=== PATIENT | male | born 1950 | race Caucasian/White ===

== ENCOUNTER 2020-05-06 11:44 | Outpatient (CLI) | payer MEDICARE, SELFPAY ==
--- NOTE | ~2020-05-06 | XR_ITS ---
EXAMINATION: XR lumbar spine 6V w bending DATE: 05/06/2020 12:05 INDICATION: Low back pain TECHNIQUE: Anteroposterior, lateral in neutral, flexion and extension, and bilateral oblique views of the lumbar spine, and cone-down lateral view of the lumbosacral junction were obtained. COMPARISON: CT, 07/12/2017 FINDINGS: Vertebral body alignment is normal. There is no laxity with flexion or extension. No fractu re is identified. There is mild loss of intervertebral disc space height throughout the lumbar spine. The vertebral body heights are normal. There is moderate multilevel facet osteoarthritis. Cholecyste ctomy clips are present in the right upper quadrant. Calcified atherosclerosis is noted. IMPRESSION: 1. Mild to moderate lumbar spondylosis without acute findings. Reviewed, dictated and finalized at location A. ATIONS SCHEDULER
== END 2020-05-06 11:45 | disposition home or self-care (01) ==
PROVIDERS: PCP Internal Medicine; Visit Provider Physician Assistant
DX: M47.896 Other spondylosis, lumbar region (principal)
CPT/HCPCS: 72114

== ENCOUNTER 2022-03-02 11:30 | Outpatient (CLI) | payer MEDICARE, SELFPAY ==
[2022-03-02 14:39] LABS: Influenza A QL RT-PCR Negative (Negative); Influenza B QL RT-PCR Negative (Negative); RSV RNA, RT-PCR Negative (Negative); SARS-CoV-2 RNA PCR Negative
== END 2022-03-02 11:31 | disposition home or self-care (01) ==
LOC: ANHLAB 11:31
PROVIDERS: PCP Internal Medicine; Visit Provider Internal Medicine
DX: R50.9 Fever, unspecified (principal); Z20.822 Contact with and (suspected) exposure to COVID-19
CPT/HCPCS: 87637

== ENCOUNTER 2022-04-05 11:44 | Outpatient (CLI) | payer MEDICARE, SELFPAY ==
[2022-04-05 12:57] LABS: Influenza A QL RT-PCR Negative (Negative); Influenza B QL RT-PCR Negative (Negative); SARS-CoV-2 RNA PCR Negative
== END 2022-04-05 11:45 | disposition home or self-care (01) ==
PROVIDERS: PCP Internal Medicine; Visit Provider Physician Assistant
DX: R68.89 Other general symptoms and signs (principal); Z20.822 Contact with and (suspected) exposure to COVID-19
CPT/HCPCS: 87502; U0003; U0005

== ENCOUNTER 2022-04-06 10:59 | Inpatient (IN) | payer MEDICARE, SELFPAY ==
[2022-04-06] VITALS (35 sets, daily range): BP systolic 107–142; BP diastolic 54–111; PULSE 85–110; RESP 16–22; TEMP 36.9–37.4; O2SAT 92–99; BMI 27.5
--- NOTE | ~2022-04-06 | US_ITS ---
EXAMINATION: US venous doppler [facility] DATE: 04/10/2022 09:50 INDICATION: Lower limb swelling TECHNIQUE: Lipscomb scale images without and with compression and Doppler images of the bilateral lower e xtremity veins were obtained. COMPARISON: None FINDINGS: The right common femoral vein, profunda femoral vein, femoral vein, popliteal vein, peroneal trunk, p osterior tibial veins, and greater saphenous vein are patent. The left common femoral vein, profunda femoral vein, femoral vein, popliteal vein, peroneal trunk, po sterior tibial veins, and greater saphenous vein are patent. There is thrombosis of the lesser saphen ous vein. IMPRESSION: 1. Thrombosis of the left lesser saphenous vein. 2. No evidence of deep venous thrombosis. Reviewed, dictated and finalized at location L. KEEPER
--- NOTE | ~2022-04-06 | CT_ITS ---
Non-contrast Head CT History: Left facial numbness COMPARISON: 04/06/2022 Technique: Axial non-contrast imaging of the brain was performed. Dose reduction technique was used on this scan by utilizing automated exposure control and iterative reconstruction technique. The dose -length product (DLP) was 605.33 mGy-cm. Findings: There is no evidence of intracranial hemorrhage, mass lesion, or acute infarct. Brain par enchyma appears normal. The ventricles and subarachnoid spaces are normal in size. The calvarium ap pears normal. The visualized paranasal sinuses and mastoid air cells are clear. Impression: No significant abnormality seen. Reviewed, dictated and finalized at location . S INTERN Impression: No significant abnormality seen.
--- NOTE | ~2022-04-06 | XR_ITS ---
Clinical Indication: Chest pain PA and lateral views of the chest: Comparison: 11/11/2017 Findings: The lungs are clear, without evidence of focal consolidation or pleural effusion. Cardiome diastinal silhouette is within normal limits. Bones and soft tissues are unremarkable. Impression: Normal chest. Reviewed, dictated and finalized at location . RITY AND COMPLIANCE PROJECT MANAGER Impression: Normal chest.
--- NOTE | ~2022-04-06 | XR_ITS ---
Supine and upright views of the abdomen Clinical history: Nausea Findings: Bowel gas pattern is nonspecific. Moderate stool burden. No evidence for obstruction or catrachito e air. Questionable stone noted in the left renal pelvis region. Cholecystectomy clips noted. Osseous structures are intact. Impression: Questionable stones at the left renal pelvis region. Consider CT to further evaluate. No evidence for bowel obstruction. Moderate stool burden. Reviewed, dictated and finalized at [facility]. MAKER Impression: Questionable stones at the left renal pelvis region. Consider CT to further maritza luate. No evidence for bowel obstruction. Moderate stool burden.
--- NOTE | ~2022-04-06 | CT_ITS ---
CT scan of the Neck Technique: 2.5 mm axial scans were obtained through the neck without IV contrast administration. Joseph nal and sagittal reconstructions of the neck were obtained. Dose reduction technique was used on this scan by utilizing automated exposure control and iterative reconstruction technique. The dose-length product (DLP) was 562.10 mGy-cm. Clinical History: Fever COMPARISON: 03/04/2019 Findings: There is no evidence of any significant cervical lymphadenopathy. Several small, nonenlarged jugulo- digastric and posterior cervical lymph nodes are noted bilaterally. Parapharyngeal spaces appear norm al bilaterally. The parotid and submandibular glands appear normal. The pharyngeal mucosal spaces appear normal. No soft tissue masses are seen in the neck. The thyroid gland appears normal. Images of the lung apices reveal no abnormalities. Impression: No significant abnormalities noted. Reviewed, dictated and finalized at [facility]. PHYSICAL SCIENTIST Impression: No significant abnormalities noted.
--- NOTE | ~2022-04-06 | US_ITS ---
EXAMINATION: US venous doppler [facility] DATE: 04/06/2022 16:11 INDICATION: Left lower limb pain TECHNIQUE: Lipscomb scale images without and with compression and Doppler images of the left lower extrem ity veins were obtained. COMPARISON: None FINDINGS: The left common femoral vein, profunda femoral vein, femoral vein, popliteal vein, peroneal trunk, posterior tibial veins, and greater saphenous vein are patent. IMPRESSION: 1. Patent left lower extremity veins. No evidence of deep venous thrombosis. Reviewed, dictated and finalized at location B. ATRIC RN
--- NOTE | ~2022-04-06 | CT_ITS ---
EXAMINATION: CT abdomen pelvis w con DATE: 04/06/2022 18:11 INDICATION: Left abdominal pain. TECHNIQUE: Computed tomography (CT) of the abdomen and pelvis was performed with 100 mL Omnipaque 350 intravenous contrast. Automated exposure control and iterative reconstruction technique were employe d. The dose-length product was 457.05 mGy-cm. COMPARISON: CT abdomen and pelvis 07/12/2017, 11/24/15, 10/15/13 FINDINGS: The visualized portions of the lung bases demonstrate mild atelectasis. No pleural effusion . The heart size is normal. There are coronary artery calcifications. No pericardial effusion. There is a small sliding hiatal hernia. The liver is normal. There are changes of cholecystectomy. The sple en, pancreas, and right adrenal gland are normal. There is an 8 mm mass of fat in left adrenal gland, consistent with a myelolipoma. There are chronic changes of ablation in right kidney superior pole. There is a 1.6 cm mass in left kidney without enhancement on prior CTs, consistent with a hemorrhagic cyst. There are cysts in left kidney measuring up to 4.5 cm. The prostate is moderately enlarged. Th ere are no dilated loops of bowel. The appendix is normal. There are no pathologically enlarged lymph nodes. There is no free intraperitoneal fluid. There are bridging endplate osteophytes at multiple l evels in the thoracic spine, consistent with diffuse idiopathic skeletal hyperostosis (DISH). There i s moderate lumbar spondylosis. IMPRESSION: 1. Small sliding hiatal hernia. Reviewed, dictated and finalized at location A. ROOM
--- NOTE | ~2022-04-06 | CT_ITS ---
EXAMINATION: CT brain wo con DATE: 04/06/2022 19:06 INDICATION: Sinus pain. TECHNIQUE: Computed tomography (CT) of the head was performed without intravenous contrast. The mA wa s adjusted according to patient size. Iterative reconstruction technique was employed. The dose-lengt h product was 681.00 mGy-cm. COMPARISON: None FINDINGS: There is an old lacunar infarct in the right basal ganglia. There is no intracranial hemorr inocencia, acute infarction, or abnormal intracranial mass lesion. The ventricles are normal in size. Ther e are likely changes of ocular lens replacement surgeries. There is mild mucosal thickening in the pa ranasal sinuses. The mastoid air cells are normal. IMPRESSION: 1. Old lacunar infarct in the right basal ganglia. Reviewed, dictated and finalized at location A. NING ANALYST
--- NOTE | ~2022-04-06 | XR_ITS ---
EXAMINATION: XR chest 2V DATE: 04/08/2022 08:02 INDICATION: Fever TECHNIQUE: Frontal and lateral views of the chest are obtained COMPARISON: 04/06/2022 FINDINGS: The lungs are free of acute opacities. No pleural effusion or pneumothorax. The cardiomedia stinal silhouette is normal. There are bridging osteophytes at multiple levels in the spine, consiste nt with diffuse idiopathic skeletal hyperostosis (DISH). Surgical clips in the right upper quadrant a re likely from prior cholecystectomy. IMPRESSION: 1. No acute cardiopulmonary abnormality. Reviewed, dictated and finalized at location A. CRINOLOGY NURSE
--- NOTE | 2022-04-06 11:02 | ECG_ITS ---
Measurements Intervals Leopold Rate: 98 P: 82 CO: 172 QRS: 1 QRSD: 127 T: 0 QT: 358 QTc: 459 Interpretive Statements SINUS RHYTHM WITH OCCASIONAL SUPRAVENTRICULAR PREMATURE COMPLEXES RIGHT BUNDLE BRANCH BLOCK [120+ ms QRS DURATION, UPRIGHT V1, 40+ ms S IN I/aVL/V4/V5/V6] ABNORMAL ECG NO PREVIOUS ECG AVAILABLE FOR COMPARISON Electronically Signed On 04-06-2022 15:01:54 CUT OFF MAN by Gareth Hammond M.D.
[2022-04-06 11:35] LABS: Hematocrit 37.6 % (42.0-52.0); Hemoglobin 12.9 g/dL (14.0-18.0); Mean Corpuscular HGB Conc 34.3 g/dl (32-36); Mean Corpuscular Hemoglobin 31.9 pg (26-34); Mean Corpuscular Volume 92.8 fl (80-100); Mean Platelet Volume 10.3 fl (7.4-10.4); Platelet Count Result 208 k/mm3 (150-375); Red Blood Count 4.05 M/mm3 (4.6-6.20); Red Cell Distribution Width 12.4 % (11.5-14.5)
[2022-04-06 11:47] LABS: INR 1.1; Prothrombin Time 13.9 Seconds (11.1-14.7)
[2022-04-06 11:48] LABS: Alanine Aminotransferase 27 U/L (6-50); Alkaline Phosphatase 103 U/L (38-126); Anion Gap 7 mmol/L (8-16); Aspartate Amino Transferase 33 U/L (17-59); Bilirubin,Total 0.8 mg/dL (0.2-1.3); Blood Urea Nitrogen 17 mg/dL (9-20); Calcium 8.1 mg/dL (8.4-10.2); Carbon Dioxide 27 mmol/L (22-30); Chloride 96 mmol/L (98-107); Estimated CRCL calculation 49 ml/min; Estimated Glomerular Filt Rate > 60; Glucose 283 mg/dL (65-110); Lipase 65 U/L (23-300); Partial Thromboplastin Time 28.7 SECONDS (22.3-36.8); Potassium 3.6 mmol/L (3.4-5.0); Sodium 130 mmol/L (137-145)
[2022-04-06 11:59] LABS: Troponin I < 0.012 ng/mL (0.000-0.034)
[2022-04-06 12:06] LABS: Band Neutrophils Percent 13 % (0-6); Monocytes Absolute Manual 1.44 K/mm3 (0.1-0.90); Monocytes Percent Manual 6 % (3-9); Neutrophils Absolute Manual 21.36 K/mm3 (1.3-6.7); Neutrophils Percent Manual 76 % (46-73); Platelet Estimate Adequate (Adequate); Schistocytes None Seen (NORMAL); Total Cells Counted 100
[2022-04-06 12:11] LABS: Influenza A QL RT-PCR Negative (Negative); Influenza B QL RT-PCR Negative (Negative); SARS-CoV-2 RNA PCR Negative
[2022-04-06 13:42] LABS: Appearance Urine Clear (Clear); Bilirubin Urine Negative (Negative); Blood Urine Trace-intact (Negative); Color Urine Yellow (Yellow); Glucose Urine UA 3+ mg/dL (Negative); Ketones Urine Trace mg/dL (Negative); Leukocyte Esterase Ur Negative LEU/UL (Negative); Nitrate Urine Negative (Negative); Protein Urine 1+ mg/dL (Negative); Specific Grav Ur 1.025 (1.001-1.035); Urobilinogen Urine 0.2 mg/dL (<2.0); pH Urine 5.5 (5.0-9.0)
[2022-04-06 13:58] LABS: Mucus Urine Few /lpf; RBC Urine 0-2 /hpf (0-2); WBC Urine 0-3 /hpf
[2022-04-06 14:30] LABS: Add Urine Microscopic? YES
[2022-04-06 15:40] LABS: Troponin I < 0.012 ng/mL (0.000-0.034)
[2022-04-06 16:56] LABS: Lactic Acid Reflex 1.8 mmol/L (0.7-2.0)
--- NOTE | 2022-04-06 17:14 | ED.GENADULT ---
HPI - General Adult General Chief complaint: Chest Pain Stated complaint: chest and back pain x3 days. left leg pain Time Seen by Provider: 04/06/22 14:45 History of Present Illness HPI narrative: Patient is a 71-year-old male who presents ER with infectious symptoms. Reports about 3 days ago he began having shaking chills he has been having this daily since then. He has been having diffuse body aches. Denies documented fevers. No runny nose or sore throat or productive cough. He reports occasionally have some pressure in his ears. No abdominal discomfort/diarrhea/nausea/vomiting. He has no urinary symptoms to report. He reports he does have a firm nodule to his left calf that is been increasingly tender over the last 24 hours. No redness or drainage. Denies any trauma to his lower extremities. No known sick contacts. Related Data Home Medications Medication Instructions Recorded Confirmed aspirin 81 mg tablet,delayed 81 mg PO DAILY 03/10/19 04/06/22 release (Adult Low Dose Aspirin) cimetidine 400 mg tablet 400 mg PO ONCE 02/15/20 04/06/22 multivitamin (One-A-Day Essential 1 tablet PO DAILY 02/15/20 04/06/22 tablet) Allergies Allergy/AdvReac Type Severity Reaction Status Date / Time Sulfa (Sulfonamide Allergy Unknown Unknown Verified 03/13/22 09:55 Antibiotics) terazosin Allergy Unknown Verified 04/06/22 18:27 Review of Systems Review of Systems: All systems reviewed & are unremarkable except as noted in HPI and below Constitutional: Constitutional: Reports chills, Reports fatigue and Denies fever(s) Comments: Rigors ENT: Reports nasal congestion and Denies sore throat Cardiovascular: Cardiovascular: Denies chest pain, Denies rapid heart rate and Denies radiating jaw, neck or arm pain Respiratory: Respiratory: Denies cough, Denies dyspnea and Denies wheezing Gastrointestinal: Gastrointestinal: Denies abdominal pain, Denies nausea and Denies vomiting Musculoskeletal: Musculoskeletal: Reports back pain, Reports myalgias, Denies arthralgias and Denies joint swelling Integumentary/Breasts: Skin/Breast: Denies erythema and Denies rash Comments: Tender nodule left calf Neurologic: Denies headache(s), Denies focal weakness and Denies numbness PMFSH Past Medical History Medical History (Updated 04/06/22 @ 19:10 by Adam Michaels MD) BMI 27.0-27.9,adult Essential (primary) hypertension Fall March 2019. Stitches required at ER. Gastro-esophageal reflux disease without esophagitis Hx of renal cell carcinoma Hyperlipidemia Hypertension Surgical History Surgical History (Updated 04/06/22 @ 19:08 by Adam Michaels MD) History of cholecystectomy Family History Family History Father Patient's father is Other Diabetes mellitus Family history of arthritis Family history of congenital heart disease Family history of malignant neoplasm Social History Social History (Updated 03/13/22 @ 10:09 by Joellen Chilel [facility]) Smoking packs per day: 0.25 Smoking cigarettes per day: 5.0 Years smoked: 1 Smoking pack-years: 0.25 Smoking status: Former smoker Second hand tobacco smoke exposure: No Smoking end date: 03/04/72 Alcohol intake: never Substance use: unknown Lack of Transportation: No Lack of Food: Sometimes True Current Housing: I Have Housing Concerned About Future Housing: No Difficulty Paying Gas/Electric Bills: YES Difficulty Paying for Meds: No Currently Unemployed: Decline to Answer Education: Grade School Difficulty w/ Childcare or Family Care: No Gender identity (if verbalized by the patient): Male Exam Narrative: GENERAL: Well-appearing, well-nourished, and in no acute distress. HEAD: Normocephalic, atraumatic. ENT: Mucous membranes moist. Fluid behind the left TM and normal right TM. NECK: Supple. CHEST: Clear to auscultation. No respiratory d
--- NOTE | 2022-04-06 17:30 | PM.IMHP ---
H&P: HPI History of Present Illness Date/Time: 04/06/22 17:30 Chief Complaint: Multiple complaints. Narrative: This is a very pleasant 71-year-old male with hypertension, GERD, and history of kidney cancer status post partial nephrectomy several years ago presented to the emergency department from home for evaluation of multiple complaints. Patient provides the following history. He was in his usual state of health on Saturday and he and his when out shopping. While at the store he developed sudden onset of what sounds like rigors associated with nausea and a couple of episodes of emesis. He reports daily episodes of rigors and he continues to have generalized malaise, body aches, sinus congestion, decreased appetite, nausea, occasional loose stools, cough which is occasionally productive of green phlegm, and occasional feelings as though he is unable to empty his bladder completely. Today he noticed a mildly swollen, red area on his left calf which has been painful. He denies sweats, documented fever, headache, sick contacts, chest pain, shortness a breath, abdominal pain, and dysuria. No edema. No rash, joint swelling, back pain, bites, or wounds. He denies recent travel and history of venous thromboembolism. No sick contacts. He was afebrile on arrival to the emergency department. Pertinent labs include a WBC of 24 with a left shift, sodium 130, chloride 96, random glucose 283 (no history of diabetes), lactic acid 1.8, troponin less than 0.012, lipase 65. Urine was positive for protein and glucose. He was negative for influenza and COVID. CT of the head, abdomen, and pelvis showed no acute findings. Chest x-ray was unremarkable. Venous Doppler ultrasound of the left lower leg showed no evidence of DVT. In the ED he was given 1 g of ceftriaxone and 1250 mg of vancomycin and he is being admitted in this setting for further workup. Review of Systems Review of Systems: Twelve systems were reviewed and are negative except for as per HPI. [facility] Past Medical History Medical History (Updated 04/06/22 @ 23:02 by Clari Sultana PA-C) Essential (primary) hypertension Gastroesophageal reflux disease Hyperlipidemia Hypertension Renal cell carcinoma Status post ablation of right kidney mass. Surgical History Surgical History (Updated 04/06/22 @ 22:57 by Clari Sultana PA-C) History of cholecystectomy History of hernia repair Family History Family History Father Patient's father is Other Diabetes mellitus Family history of arthritis Family history of congenital heart disease Family history of malignant neoplasm Social History Social History (Updated 04/06/22 @ 22:57 by Clari Sultana PA-C) Social History: Surrogate medical decision maker: Marilou Arevalo, spouse. Code status: Full code. Smoking packs per day: 0.25 Smoking cigarettes per day: 5.0 Years smoked: 1 Smoking pack-years: 0.25 Smoking status: Former smoker Second hand tobacco smoke exposure: No Smoking end date: 03/04/72 Alcohol intake: former Substance use: former Substance use type: marijuana Lack of Transportation: No Lack of Food: Never True Current Housing: I Have Housing Concerned About Future Housing: No Difficulty Paying Gas/Electric Bills: No Difficulty Paying for Meds: No Currently Unemployed: No Education: High School Diploma/GED Difficulty w/ Childcare or Family Care: No Additional living arrangements comments: Lives in [place] with spouse. Occupation/Education: retired Spiritual care concerns: No Meds Home Medications and Allergies Home Medications Medication Instructions Recorded Confirmed Type aspirin 81 mg tablet,delayed 81 mg PO DAILY 03/10/19 04/06/22 History release (Adult Low Dose Aspirin) cimetidine 400 mg tablet 400 mg PO ONCE 02/15/20 04/06/22 History multivitamin (One-A-Day Essenti
[2022-04-06 19:07] LABS: Troponin I < 0.012 ng/mL (0.000-0.034)
--- NOTE | 2022-04-06 20:47 | ADMGEN ---
This patient, Gareth Arevalo, was admitted to Medical Room 346-01. Patient/family oriented to hospital policies and general routines including ID bracelet, bed and alarms, visiting hours, pain management, procedures, bathroom and other care routines, personal items, smoking policy, room service/diet, and visiting hours. Information on how to activate the Rapid Response Team has been discussed. Patient/Family are encouraged to report perceived risks to care and to ask questions if they do not understand what they are told or what they should do.
[2022-04-06 21:54] LABS: Glucose Point of Care 310 mg/dl (65-105)
[2022-04-07] MEDS: metroNIDAZOLE 500 MG/ISO 100ML 500 MG/100 ML BAG 100 MG IVPB ×4 (00:33→21:02)
[2022-04-07 04:55] VITALS: BP 126/76; PULSE 85; RESP 18; TEMP 37; O2SAT 97
[2022-04-07 07:01] LABS: Basophils Absolute Auto 0.1 K/mm3 (0.0-0.1); Basophils Percent Auto 0.4 % (0.2-1.2); Eosinophils Percent Auto 0.3 % (0-4.4); Hemoglobin 11.9 g/dL (14.0-18.0); Immature Granulocyte Absolute 0.09 K/mm3 (0.00-0.031); Immature Granulocyte Percent A 0.7 % (0-0.5); Lymphocytes Absolute Auto 1.98 K/mm3 (0.9-3.2); Lymphocytes Percent Auto 14.5 % (18.3-44.2); Mean Corpuscular Hemoglobin 32.2 pg (26-34); Mean Corpuscular Volume 94.6 fl (80-100); Mean Platelet Volume 10.1 fl (7.4-10.4); Monocytes Absolute Auto 1.3 K/mm3 (0.1-0.6); Monocytes Percent Auto 9.5 % (2.6-8.5); Neutrophils Absolute Auto 10.2 K/mm3 (1.3-6.7); Neutrophils Percent Auto 74.6 % (45.5-73.1); Platelet Count Result 182 k/mm3 (150-375); Red Cell Distribution Width 12.4 % (11.5-14.5); White Blood Count 13.7 K/mm3 (4.5-10.0)
[2022-04-07 07:12] LABS: Alanine Aminotransferase 23 U/L (6-50); Albumin Level 3.3 g/dL (3.5-5.1); Alkaline Phosphatase 82 U/L (38-126); Anion Gap 3 mmol/L (8-16); Aspartate Amino Transferase 24 U/L (17-59); Bilirubin,Total 0.9 mg/dL (0.2-1.3); Blood Urea Nitrogen 13 mg/dL (9-20); Carbon Dioxide 28 mmol/L (22-30); Chloride 99 mmol/L (98-107); Estimated CRCL calculation 59 ml/min; Estimated Glomerular Filt Rate > 60; Glucose 166 mg/dL (65-110); Magnesium 2.1 mg/dL (1.6-2.3); Potassium 3.3 mmol/L (3.4-5.0); Sodium 130 mmol/L (137-145)
[2022-04-07 07:41] LABS: Thyroid Stimulating Hormone Reflex 0.504 uIU/mL (0.465-4.68)
[2022-04-07 07:58] LABS: Hemoglobin A1C 7.9 % (<5.7)
[2022-04-07 08:32] LABS: Glucose Point of Care 206 mg/dl (65-105)
[2022-04-07] MEDS: INSULIN ASPART (*BKC) 100 UNITS/ML SUB-Q ×3 (09:18→18:01)
[2022-04-07] MEDS: FLUTICASONE PROPIONATE 0.05% NA SPR 16 GM BTL (*BKC) 2 SPRAY NASAL (09:23)
[2022-04-07] MEDS: ENOXAPARIN 40 MG/0.4 ML SYRINGE SUB-Q (09:24)
[2022-04-07] MEDS: FAMOTIDINE 20 MG TABLET PO ×2 (09:25→21:01)
[2022-04-07] MEDS: FELODIPINE 5 MG TAB CR PO (09:25)
[2022-04-07] MEDS: ASPIRIN 81 MG ENTERIC TABLET PO (09:25)
[2022-04-07] MEDS: MULTIVITAMINS THERAPEUTIC TAB (*BKC) 1 TABLET PO (09:25)
[2022-04-07] MEDS: PANTOPRAZOLE 40 MG TABLET PO ×2 (09:25→21:02)
[2022-04-07] MEDS: lisinopriL 5 MG TABLET BY MOUTH (09:25)
[2022-04-07 09:30] VITALS: PULSE 85; RESP 18; O2SAT 94
[2022-04-07 12:14] LABS: Glucose Point of Care 210 mg/dl (65-105)
[2022-04-07 13:35] VITALS: O2SAT 94
[2022-04-07 14:00] VITALS: BP 132/63; PULSE 99; RESP 20; TEMP 37; O2SAT 97
--- NOTE | 2022-04-07 15:15 | PM.IMPN ---
Progress Note: A&P Assessment and Plan (1) Generalized weakness: Code(s): R53.1 - Weakness Status: Acute Assessment and Plan: The patient presented to the ED for evaluation of malaise, rigors, and n/v. He was discovered to have leukocytosis (24K) with bandemia 13%. Concern for infection but no clear source; Abx started UA clear. CXR clear. BCx NGTD. CT A/P showing no acute findings. Mild paranasal sinus disease but doubt this would cause Small area to the left calf but again do not fel this would cause systemic systems. Related to periodontal disease. WBC better and no fevers Continue metronidazole, Rocephin and Vanco. (2) Bandemia: Code(s): D72.825 - Bandemia Status: Acute Assessment and Plan: As above (3) Dehydration: Code(s): E86.0 - Dehydration Status: Acute Assessment and Plan: The patient clinically appeared dry on exam and by history and he was rehydrated judiciously. Doing well. IV fluids off. (4) New onset type 2 diabetes mellitus: Code(s): E11.9 - Type 2 diabetes mellitus without complications Status: Acute Assessment and Plan: A1c 7.9. Patient with newly diagnosed DM The patient's blood glucose was reviewed on 04/07 Glucose remains well controlled. Continue AccuCheks covering with sliding scale. Hypoglycemia protocol available as needed. informatics educator and budget clerk to see. Add metformin (5) Essential (primary) hypertension: Code(s): I10 - Essential (primary) hypertension Status: Acute Assessment and Plan: Patient's blood pressure was reviewed on 04/07 Blood pressure remains well controlled. Will continue current medications. Plan DVT prophylaxis - Lovenox Subjective Date/time seen: 04/07/22 15:15 Interval history: 71yo male with HTN here for weakness. Patient denies any fever or chills. He still mildly diaphoretic at times. He does have poor dentition in lower jaw. He is eating okay. No nausea, vomiting or diarrhea. No dysuria or hematuria. He still has a cough but this seems more chronic. He subjectively feels much better. Numbness to the right foot for the past few months but worse since admission. Exam Narrative: AF 126/76 85 18 94% ra Gen - NARD HEENT - poor lower jaw teeth. upper jaw endentulous Chest - CTA bilaterally, nml RR CV - RRR S1/S2 Abd - Soft, NT/ND, Positive BS Ext - No pedal edema Neuro - Alert and oriented. Nonfocal exam. Numbness to the right foot. Hel to rodriguez okay. Proprioception normal. Psych - Nml mood and affect Skin - Warm and dry. There is a defect on the left calf from prior surgery. Just above this area is a 1.5 cm nodule which is very tender to palpation with mild erythema at the same site Objective Data Vital Signs Vital Signs: Vital Signs - 24 hr 04/06/22 16:28 04/06/22 16:30 04/06/22 16:36 Temperature Pulse Rate Respiratory Rate Blood Pressure 129/111 H Pulse Oximetry 96 96 97 Oxygen Delivery 04/06/22 16:45 04/06/22 16:46 04/06/22 17:00 Temperature Pulse Rate Respiratory Rate 18 Blood Pressure 124/64 Pulse Oximetry 96 96 96 Oxygen Delivery 04/06/22 17:01 04/06/22 17:02 04/06/22 17:15 Temperature Pulse Rate Respiratory Rate 20 Blood Pressure 133/55 L Pulse Oximetry 96 96 96 Oxygen Delivery 04/06/22 17:16 04/06/22 17:30 04/06/22 17:31 Temperature Pulse Rate Respiratory Rate Blood Pressure 119/69 135/75 Pulse Oximetry 96 97 Oxygen Delivery 04/06/22 17:32 04/06/22 17:45 04/06/22 17:46 Temperature Pulse Rate Respiratory Rate Blood Pressure 135/63 Pulse Oximetry 96 96 96 Oxygen Delivery 04/06/22 18:00 04/06/22 18:01 04/06/22 18:15 Temperature Pulse Rate 85 Respiratory Rate 20 Blood Pressure 124/69 142/65 H Pulse Oximetry 97 97 97 Oxygen Delivery 04/06/22 18:16 04/06/22 18:30
[2022-04-07 17:57] LABS: Glucose Point of Care 243 mg/dl (65-105)
[2022-04-07] MEDS: POTASSIUM CHLORIDE 20 MEQ TABLET 40 MEQ PO (18:04)
[2022-04-07] MEDS: metFORMIN HCL 250 MG TABLET PO (18:28)
[2022-04-07 20:08] VITALS: BP 118/59; PULSE 96; RESP 20; TEMP 36.9; O2SAT 98
[2022-04-07 21:07] LABS: Glucose Point of Care 272 mg/dl (65-105)
[2022-04-08 05:12] VITALS: BP 140/61; PULSE 100; RESP 20; TEMP 37.1; O2SAT 98
[2022-04-08] MEDS: metroNIDAZOLE 500 MG/ISO 100ML 500 MG/100 ML BAG 100 MG IVPB ×3 (05:54→21:37)
[2022-04-08 06:42] LABS: Basophils Absolute Auto 0.1 K/mm3 (0.0-0.1); Basophils Percent Auto 0.5 % (0.2-1.2); Eosinophils Absolute Auto 0.1 K/mm3 (0-0.3); Eosinophils Percent Auto 0.8 % (0-4.4); Hematocrit 36.1 % (42.0-52.0); Hemoglobin 12.3 g/dL (14.0-18.0); Immature Granulocyte Absolute 0.16 K/mm3 (0.00-0.031); Immature Granulocyte Percent A 1.6 % (0-0.5); Lymphocytes Percent Auto 16.1 % (18.3-44.2); Mean Corpuscular HGB Conc 34.1 g/dl (32-36); Mean Corpuscular Hemoglobin 31.9 pg (26-34); Mean Corpuscular Volume 93.5 fl (80-100); Monocytes Absolute Auto 0.8 K/mm3 (0.1-0.6); Monocytes Percent Auto 7.6 % (2.6-8.5); Neutrophils Absolute Auto 7.3 K/mm3 (1.3-6.7); Neutrophils Percent Auto 73.4 % (45.5-73.1); Platelet Count Result 208 k/mm3 (150-375); Red Blood Count 3.86 M/mm3 (4.6-6.20); Red Cell Distribution Width 12.1 % (11.5-14.5); White Blood Count 9.9 K/mm3 (4.5-10.0)
[2022-04-08 06:53] LABS: Alanine Aminotransferase 24 U/L (6-50); Albumin Level 3.2 g/dL (3.5-5.1); Alkaline Phosphatase 89 U/L (38-126); Anion Gap 4 mmol/L (8-16); Aspartate Amino Transferase 26 U/L (17-59); Bilirubin,Total 0.7 mg/dL (0.2-1.3); Blood Urea Nitrogen 13 mg/dL (9-20); Carbon Dioxide 26 mmol/L (22-30); Chloride 105 mmol/L (98-107); Estimated CRCL calculation 66 ml/min; Estimated Glomerular Filt Rate > 60; Glucose 172 mg/dL (65-110); Potassium 3.9 mmol/L (3.4-5.0); Sodium 135 mmol/L (137-145)
[2022-04-08 08:34] LABS: Glucose Point of Care 205 mg/dl (65-105)
[2022-04-08 09:00] VITALS: PULSE 100; RESP 20; O2SAT 98
[2022-04-08] MEDS: INSULIN ASPART (*BKC) 100 UNITS/ML SUB-Q ×2 (09:02→13:20)
[2022-04-08] MEDS: ENOXAPARIN 40 MG/0.4 ML SYRINGE SUB-Q (09:07)
[2022-04-08] MEDS: metFORMIN HCL 250 MG TABLET PO ×2 (09:07→18:12)
[2022-04-08] MEDS: PANTOPRAZOLE 40 MG TABLET PO (09:07)
[2022-04-08] MEDS: FLUTICASONE PROPIONATE 0.05% NA SPR 16 GM BTL (*BKC) 2 SPRAY NASAL (09:07)
[2022-04-08] MEDS: FAMOTIDINE 20 MG TABLET PO ×2 (09:08→21:35)
[2022-04-08] MEDS: MULTIVITAMINS THERAPEUTIC TAB (*BKC) 1 TABLET PO (09:08)
[2022-04-08] MEDS: FELODIPINE 5 MG TAB CR PO (09:08)
[2022-04-08] MEDS: lisinopriL 5 MG TABLET BY MOUTH (09:08)
[2022-04-08] MEDS: ASPIRIN 81 MG ENTERIC TABLET PO (09:08)
[2022-04-08 13:04] LABS: Glucose Point of Care 212 mg/dl (65-105)
[2022-04-08 13:30] VITALS: BP 134/58; PULSE 73; RESP 18; TEMP 36.6; O2SAT 98
--- NOTE | 2022-04-08 14:12 | PM.DS ---
DS: Admitting Diagnosis Discharge Date 04/08/22 Admitting Diagnosis Weakness DS: Discharge Diagnosis Discharge Diagnosis (1) Generalized weakness: Code(s): R53.1 - Weakness Status: Acute (2) Leukocytosis: Code(s): D72.829 - Elevated white blood cell count, unspecified Status: Acute (3) Bandemia: Code(s): D72.825 - Bandemia Status: Acute (4) Dehydration: Code(s): E86.0 - Dehydration Status: Acute (5) New onset type 2 diabetes mellitus: Code(s): E11.9 - Type 2 diabetes mellitus without complications Status: Acute (6) Essential (primary) hypertension: Code(s): I10 - Essential (primary) hypertension Status: Acute DS: Summary Hospital Course Reason for hospitalization: 71yo male with HTN here for weakness. Please see H&P for details. Hospital Course: The patient presented to the ED for evaluation of malaise, rigors, and n/v. He was discovered to have leukocytosis (24K) with bandemia 13%. There was concern for infection but no clear source; Abx started with Vancomycin, Rocephin and Flagyl. UA clear. CXR clear. BCx NGTD. CT A/P showing no acute findings. CXR repeated and showing no acute findings. Mild paranasal sinus disease noted but doubt this would cause these symptoms. Small area to the left calf but again do not feel this would cause systemic systems. Possibly related to periodontal disease but pain along the jaw line. WBC normalized and no fevers. The patient clinically appeared dry on exam and by history and he was rehydrated judiciously. The patient had an elevated glucose on admission. A1c 7.9. Patient with newly diagnosed DM. Custom Wood Stair Builder consulted. Dietary changes were discussed with patient. Also recommended starting a low impact exercise program with walking. He was started on AccuCheks covering with sliding scale.? Hypoglycemia protocol was available as needed.?We added metformin. He feels well. He has been up walking in the halls unasisted. He feels ready for discharge. Status at Discharge Cognitive/behavioral status at discharge: Stable Time Spent with Patient Time attestation: Total time spent providing and/or coordinating discharge services: 32 minutes Time spent: Greater than 30 minutes Exam Narrative: AF 140/61 100 20 98% ra Gen - NARD HEENT - poor lower jaw teeth. no pain to palpation along the upper and lower jaw line. Neck - mild left sided lateral neck pain but no overlying erythema and no discreet mass. shoddy anterior adenopathy. Chest - CTA bilaterally, nml RR CV - RRR S1/S2 Abd - Soft, NT/ND, Positive BS Ext - No pedal edema Psych - Nml mood and affect Skin - Warm and dry. There is a defect on the left calf from prior surgery. Just above this area is a 1.5 cm tender, raised nodule which mild erythema DS: Data Data Completed and Pending Labs on day of discharge: Labs from last 24 hours 04/08/22 04/08/22 04/08/22 13:02 08:22 06:25 WBC RBC Hgb Hct MCV MCH MCHC RDW Plt Count MPV Immature Gran % (Auto) Neut % (Auto) Lymph % (Auto) Tyler % (Auto) Eos % (Auto) Baso % (Auto) Lymph # (Auto) Tyler # (Auto) Eos # (Auto) Baso # (Auto) Abs Immat Gran (auto) Absolute Neuts (auto) Absolute Nucleated RBC Nucleated RBC % Sodium 135 L Potassium 3.9 Chloride 105 Carbon Dioxide 26 Anion Gap 4 L BUN 13 Creatinine 0.80 Estim Creat Clear Calc 66 Estimated GFR > 60 Glucose 172 H POC Capillary Glucose 212 H 205 H Calcium 8.0 L Total Bilirubin 0.7 AST 26 ALT 24 Alkaline Phosphatase 89 Total Protein 7.0 Albumin 3.2 L 04/08/22 04/07/22 04/07/22 06:25 20:13 17:28 WBC 9.9 RBC 3.86 L Hgb 12.3 L Hct 36.1 L MCV 93.5 MCH 31.9 MCHC 34.1 RDW 12.1 Plt Count 208 MPV 10.0 Immature Gran % (Auto) 1.6 H Neut % (Auto) 73.4 H Lymph %
[2022-04-08 17:03] LABS: Glucose Point of Care 214 mg/dl (65-105)
[2022-04-08] MEDS: ONDANSETRON INJ 4 MG/2 ML VIAL IV PUSH (17:04)
--- NOTE | 2022-04-08 17:24 | ECG_ITS ---
Measurements Intervals [place] Rate: 82 P: [place]: 0 QRS: -16 QRSD: 135 T: 6 QT: 400 QTc: 469 Interpretive Statements ATRIAL FIBRILLATION RIGHT BUNDLE BRANCH BLOCK [120+ ms QRS DURATION, UPRIGHT V1, 40+ ms S IN I/aVL/V4/V5/V6] ABNORMAL ECG COMPARED TO ECG 04/06/2022 11:12:26 ATRIAL FIBRILLATION REPLACES SINUS RHYTHM Electronically Signed On 04-09-2022 11:58:47 HOT BLASTER by Gareth Hammond M.D.
[2022-04-08] MEDS: SODIUM CHLORIDE 0.9% IV 1,000 ML 100 ML IV CONT ×2 (18:11→21:39)
[2022-04-08 18:18] LABS: Basophils Percent Auto 0.3 % (0.2-1.2); Eosinophils Percent Auto 0.2 % (0-4.4); Hematocrit 37.2 % (42.0-52.0); Immature Granulocyte Absolute 0.16 K/mm3 (0.00-0.031); Immature Granulocyte Percent A 1.6 % (0-0.5); Lymphocytes Percent Auto 12.3 % (18.3-44.2); Mean Corpuscular HGB Conc 34.9 g/dl (32-36); Mean Corpuscular Hemoglobin 32.2 pg (26-34); Mean Corpuscular Volume 92.1 fl (80-100); Mean Platelet Volume 9.8 fl (7.4-10.4); Monocytes Absolute Auto 0.4 K/mm3 (0.1-0.6); Monocytes Percent Auto 3.6 % (2.6-8.5); Platelet Count Result 206 k/mm3 (150-375); Red Blood Count 4.04 M/mm3 (4.6-6.20); White Blood Count 9.8 K/mm3 (4.5-10.0)
[2022-04-08 18:27] LABS: Lipase 73 U/L (23-300)
[2022-04-08 18:28] LABS: Lactic Acid Reflex 1.1 mmol/L (0.7-2.0)
[2022-04-08 18:40] LABS: Troponin I < 0.012 ng/mL (0.000-0.034)
[2022-04-08 19:20] LABS: Procalcitonin 0.9 ng/mL
[2022-04-08 19:45] LABS: Alanine Aminotransferase 26 U/L (6-50); Albumin Level 3.5 g/dL (3.5-5.1); Alkaline Phosphatase 93 U/L (38-126); Anion Gap 9 mmol/L (8-16); Aspartate Amino Transferase 26 U/L (17-59); Bilirubin,Total 0.7 mg/dL (0.2-1.3); Blood Urea Nitrogen 14 mg/dL (9-20); Calcium 8.2 mg/dL (8.4-10.2); Carbon Dioxide 22 mmol/L (22-30); Chloride 102 mmol/L (98-107); Estimated CRCL calculation 74 ml/min; Estimated Glomerular Filt Rate > 60; Glucose 225 mg/dL (65-110); Potassium 3.8 mmol/L (3.4-5.0); Sodium 133 mmol/L (137-145)
[2022-04-08 19:59] LABS: CRP 15.4 mg/dL (<1.0)
[2022-04-08 20:00] VITALS: PULSE 101
[2022-04-08 20:55] VITALS: BP 146/79; PULSE 99; RESP 18; TEMP 36.5; O2SAT 98
[2022-04-08 21:11] LABS: Glucose Point of Care 204 mg/dl (65-105)
[2022-04-08] MEDS: ENOXAPARIN 80 MG/0.8 ML SYRINGE 77 MG SUB-Q (21:35)
[2022-04-08] MEDS: PANTOPRAZOLE SODIUM IV 40 MG VIAL IV PUSH (21:35)
[2022-04-08 21:36] VITALS: PULSE 112
[2022-04-08] MEDS: METOPROLOL TARTRATE 12.5 MG TABLET PO (21:36)
[2022-04-09] VITALS (11 sets, daily range): BP systolic 125–136; BP diastolic 64–75; PULSE 70–109; RESP 16–20; TEMP 36.2–36.9; O2SAT 97–100
--- NOTE | 2022-04-09 | ECHO_ITS ---
Patient Info Name: Gareth Arevalo Age: 71 years : 1950 Gender: Male Ht: 66 in Wt: 170 lbs BSA: 1.91 m2 HR: 78 bpm BP: 132 / 68 mmHg Heart Rhythm: Atrial Fibrillation Technical Quality: Fair Exam Date: 04/09/2022 10:38 AM Exam Location: [facility] Pulmonary Exam Room: [facility] Patient Status: Outpatient Admit Date: 04/06/2022 Staff Ordering Physician: Bulmrao Boyce MD Microbiology Technician: Kim Velez RDCS Attending Provider: Charis Askew MD Exam Type: CA echo doppler color flow Study Info Indications - AFIB Complete two-dimensional, color flow and Doppler transthoracic echocardiogram is performed. Summary 1. Complete two-dimensional, color flow and Doppler transthoracic echocardiogram is performed. 2. Left ventricular chamber dimension is normal. 3. Left ventricular systolic function is normal, estimated at 65-70%. 4. There is no increased left ventricular wall thickness. 5. The left ventricular diastolic function is indeterminate. 6. There is no aortic valve stenosis. 7. There is trace mitral valve regurgitation. 8. There is trace tricuspid valve regurgitation. 9. No pulmonary hypertension, estimated pulmonary arterial systolic pressure is 21 mmHg. Left Ventricle Left ventricular chamber dimension is normal. Left ventricular systolic function is normal, estimated at 65-70%. There is no increased left ventricular wall thickness. The left ventricular diastolic function is indeterminate. Right Ventricle Right ventricular chamber dimension is normal. Right ventricular systolic function is normal. Left Atria Left atrial chamber dimension is normal. Right Atria Right atrial chamber dimension is normal. Aortic Valve The aortic valve is not well visualized. There is no aortic valve stenosis. There is no aortic valve regurgitation. Pulmonic Valve The pulmonic valve is not well visualized. There is trace pulmonic regurgitation. Mitral Valve The mitral valve has thickened leaflets. There is trace mitral valve regurgitation. The mitral valve annulus is mildly calcified. Tricuspid Valve The tricuspid valve leaflets are normal. There is trace tricuspid valve regurgitation. No pulmonary hypertension, estimated pulmonary arterial systolic pressure is 21 mmHg. Pericardium/Pleural The pericardium appears normal. There is trivial pericardial effusion. Inferior Vena Cava Normal inferior vena cava with >50% collapse upon inspiration consistent with normal right atrial pressure, 5 mmHg. Aorta The aortic root size at the sinus of Valsalva is normal. There is mild aortic atherosclerosis. Left Ventricular Outflow Tract Name Value Normal LVOT 2D LVOT Diameter 2.0 cm LVOT Doppler LVOT Peak Gradient 3 mmHg LVOT Mean Gradient 1 mmHg LVOT VTI 17 cm LVOT VTI/AV VTI Ratio 0.8 LVOT Stroke Volume 55 ml LVOT CO 11.5 l/min LVOT CI 6.0 l/min/m2 Pulmonic
[2022-04-09] MEDS: metroNIDAZOLE 500 MG/ISO 100ML 500 MG/100 ML BAG 100 MG IVPB ×3 (05:21→20:31)
[2022-04-09 08:22] LABS: Glucose Point of Care 139 mg/dl (65-105)
[2022-04-09] MEDS: FAMOTIDINE 20 MG TABLET PO ×2 (08:47→20:31)
[2022-04-09] MEDS: metFORMIN HCL 250 MG TABLET PO ×2 (08:47→17:16)
[2022-04-09] MEDS: FLUTICASONE PROPIONATE 0.05% NA SPR 16 GM BTL (*BKC) 2 SPRAY NASAL (08:47)
[2022-04-09] MEDS: PANTOPRAZOLE SODIUM IV 40 MG VIAL IV PUSH ×2 (08:47→20:31)
[2022-04-09] MEDS: ASPIRIN 81 MG ENTERIC TABLET PO (08:48)
[2022-04-09] MEDS: lisinopriL 5 MG TABLET BY MOUTH (08:48)
[2022-04-09] MEDS: METOPROLOL TARTRATE 12.5 MG TABLET PO ×2 (08:48→20:31)
[2022-04-09] MEDS: MULTIVITAMINS THERAPEUTIC TAB (*BKC) 1 TABLET PO (08:48)
[2022-04-09] MEDS: ENOXAPARIN 80 MG/0.8 ML SYRINGE 77 MG SUB-Q (08:49)
--- NOTE | 2022-04-09 12:34 | PM.IMPN ---
Progress Note: A&P Assessment and Plan (1) Atrial fibrillation: Code(s): I48.91 - Unspecified atrial fibrillation Status: Acute Assessment and Plan: EKG showing AFib which is new onset. EKG on admission showing NSR. Trop negative on admission x and again was negative on repeat. TSH normal. Echo ordered. [id number] (HTN, Age, DM, CVA). Lovenox started. Continue tele. Cards consulted. (2) Nausea & vomiting: Code(s): R11.2 - Nausea with vomiting, unspecified Status: Acute Assessment and Plan: Patient with n/v last night and discharge held. He is now having a cough. His repeat CXR yesterday clear. Neck CT showing no acute findings. Repeat Head CT aslo showing no acute findings. KUB negative. Etiology unclear of his recurrent n/v. Vanco stopped. Clear liquid diet today and advance diet as tolerated (3) Generalized weakness: Code(s): R53.1 - Weakness Status: Acute Assessment and Plan: The patient presented to the ED for evaluation of malaise, rigors, and n/v. He was discovered to have leukocytosis (24K) with bandemia 13%. Concern for infection but no clear source; Abx started UA clear. CXR clear. BCx NGTD. CT A/P showing no acute findings. Mild paranasal sinus disease but doubt this would cause Small area to the left calf but again do not feel this would cause systemic systems. Related to periodontal disease? CT Neck showing no acute findings. WBC normal and no fevers Continue metronidazole, Rocephin (4) Leukocytosis: Code(s): D72.829 - Elevated white blood cell count, unspecified Status: Acute Assessment and Plan: WBC was 24K on admission. Differential as mentioned above. WBC normal now. (5) Bandemia: Code(s): D72.825 - Bandemia Status: Acute Assessment and Plan: As above (6) New onset type 2 diabetes mellitus: Code(s): E11.9 - Type 2 diabetes mellitus without complications Status: Acute Assessment and Plan: A1c 7.9. Patient with newly diagnosed DM The patient's blood glucose was reviewed on 04/09 Glucose remains reasonably well controlled. Continue AccuCheks covering with sliding scale. Hypoglycemia protocol available as needed. para educator and business development sales executive to see. Continue metformin (7) Essential (primary) hypertension: Code(s): I10 - Essential (primary) hypertension Status: Acute Assessment and Plan: Patient's blood pressure was reviewed on 04/09 Blood pressure remains well controlled. Will continue current medications. (8) Dehydration: Code(s): E86.0 - Dehydration Status: Acute Assessment and Plan: The patient clinically appeared dry on exam and by history and he was rehydrated judiciously. Doing well. Plan DVT prophylaxis - Lovenox Subjective Date/time seen: 04/09/22 12:34 Interval history: 71yo male with HTN here for weakness. Patient having productive cough now. Also with nausea and vomiting (more coughing with emesis). Intermittent headaches still. Left leg lesion still painful Exam Narrative: AF 132/64 74 20 98% ra Gen - NARD Chest - CTA bilaterally, nml RR CV - irreguarly irregular; tele showing AFib with controlled rate Abd - Soft, NT/ND, Positive BS Ext - No pedal edema Psych - Nml mood and affect Skin - Warm and dry. There is a defect on the left calf from prior surgery. Just above this area is a 1.5 cm tender, raised nodule which mild erythema without change Objective Data Vital Signs Vital Signs: Vital Signs - 24 hr 04/08/22 13:30 04/08/22 20:55 04/08/22 21:36 Temperature 98 F 97.7 F Pulse Rate 73 99 112 H Respiratory Rate 18 18 Blood Pressure 134/58 L 146/79 H Pulse Oximetry 98 98 Oxygen Delivery 04/08/22 20:00 04/08/22 20:00 04/09/22 00:00 Temperature Pulse Rate 101 H 109 H Respiratory Rate Blood Pressure Pulse Oximetry Oxygen
[2022-04-09 12:46] LABS: Glucose Point of Care 183 mg/dl (65-105)
[2022-04-09] MEDS: SODIUM CHLORIDE 0.9% IV 1,000 ML 100 ML IV CONT (13:13)
--- NOTE | 2022-04-09 13:37 | PM.CNCAR ---
Assessment and Plan Assessment and plan (1) Atrial fibrillation: Qualifiers: Atrial fibrillation type: unspecified Qualified Code(s): I48.91 - Unspecified atrial fibrillation Code(s): I48.91 - Unspecified atrial fibrillation Status: Acute Assessment and Plan: new onset atrial fibrillation with controlled ventricular response on metoprolol 12.5 mg twice daily. CHADS2 Vasc score 5. Systemic anticoagulation warranted. No clear contraindications to anticoagulation. Risks with folic stroke versus bleeding complications discussed at length. Systemic anticoagulation options discussed at length all questions answered to his satisfaction. Eliquis 5 mg b.i.d. reasonable. Care coordination to weldon. Discontinue enoxaparin and begin Eliquis this evening. Continue metoprolol. Counseled on if falls, bleeding or head injury go to ER immediately for evaluation. All questions answered to his satisfaction. Discussed management options including rate versus rhythm control strategy. Patient is asymptomatic, heart rate controlled and with stroke risk reduction with initiation of oral anticoagulant therapy. Echocardiogram without significant valvular heart disease, preserved LV systolic function. Patient stable from cardiac perspective at this time. We discussed risks and benefits with management strategies including consideration for outpatient cardioversion to restore sinus rhythm if he notes symptoms and/or wishes to pursue rhythm control strategy. he is comfortable with heart rate control at this time and to follow up as an outpatient for further management options. May discontinue aspirin. He is not reporting anginal symptoms nor dizzy a have a history of prior CVA or CAD/myocardial infarction. Disposition per hospitalist service. Follow-up with me as an outpatient within 4 weeks or sooner as needed. (2) Essential (primary) hypertension: Code(s): I10 - Essential (primary) hypertension Status: Acute Assessment and Plan: BP reasonably controlled on lisinopril 5 mg daily. Off felodipine for now. Tolerating metoprolol tartrate 12.5 mg twice daily. (3) New onset type 2 diabetes mellitus: Code(s): E11.9 - Type 2 diabetes mellitus without complications Status: Acute Assessment and Plan: Improving with medical therapy. defer to primary service in this regard. (4) Weakness: Code(s): R53.1 - Weakness Status: Acute Assessment and Plan: COVID negative, influenza and RSV negative. Leukocytosis has resolved with antibiotics. Continue supportive care and management. Medical management for URI symptoms (5) Right bundle branch block: Code(s): I45.10 - Unspecified right bundle-branch block Status: Acute Assessment and Plan: RBBB likely chronic although chronicity unknown at this time. History of Present Illness History of Present Illness Consult date/time: Date of service:04/09/22 13:37 Requesting physician: Bulmaro Boyce MD Consult reason: atrial fibrillation Reason For Visit: generalized wekaness, leukocytosis Narrative: Patient is a pleasant 71-year-old male who is originally admitted 04/06/2022 complaints of weakness, rigors, nausea vomiting found to have significant leukocytosis started on broad-spectrum antibiotics without clear identified source. Patient improved clinically with normalization of his white blood cell count and was hydrated as he was clinically intravascular volume depleted at presentation. He has mild acute kidney injury admission and also newly diagnosed with diabetes mellitus. Patient was in sinus rhythm at presentation but then with set to be discharged on April 08, however, discharge was postponed due to nausea vomiting and new onset atrial fibrillation with controlled ventricular response. Patient is asymptomatic denies palpitation, shortness of breath or chest pain. He continues to complain o
[2022-04-09 16:34] LABS: Glucose Point of Care 211 mg/dl (65-105)
[2022-04-09] MEDS: INSULIN ASPART (*BKC) 100 UNITS/ML SUB-Q (17:16)
[2022-04-09 20:14] LABS: Glucose Point of Care 149 mg/dl (65-105)
[2022-04-09] MEDS: APIXABAN 5 MG TABLET PO (20:31)
[2022-04-10] VITALS (9 sets, daily range): BP systolic 126–148; BP diastolic 68–80; PULSE 68–88; RESP 18–20; TEMP 36.7–37.1; O2SAT 97–100
[2022-04-10] MEDS: SODIUM CHLORIDE 0.9% IV 1,000 ML 100 ML IV CONT (05:20)
[2022-04-10] MEDS: metroNIDAZOLE 500 MG/ISO 100ML 500 MG/100 ML BAG 100 MG IVPB ×2 (05:20→13:19)
--- NOTE | 2022-04-10 06:54 | PC.NURSE ---
Initial DSMT AND MNT referral started for pt. [facility] and to Dr. Greer.
[2022-04-10 09:58] LABS: Glucose Point of Care 129 mg/dl (65-105)
[2022-04-10] MEDS: METOPROLOL TARTRATE 12.5 MG TABLET PO (10:17)
[2022-04-10] MEDS: MULTIVITAMINS THERAPEUTIC TAB (*BKC) 1 TABLET PO (10:17)
[2022-04-10] MEDS: APIXABAN 5 MG TABLET PO (10:17)
[2022-04-10] MEDS: FAMOTIDINE 20 MG TABLET PO (10:17)
[2022-04-10] MEDS: lisinopriL 5 MG TABLET BY MOUTH (10:17)
[2022-04-10] MEDS: metFORMIN HCL 250 MG TABLET PO (10:17)
[2022-04-10] MEDS: ASPIRIN 81 MG ENTERIC TABLET PO (10:18)
[2022-04-10] MEDS: PANTOPRAZOLE SODIUM IV 40 MG VIAL IV PUSH (10:18)
[2022-04-10] MEDS: FLUTICASONE PROPIONATE 0.05% NA SPR 16 GM BTL (*BKC) 2 SPRAY NASAL (10:18)
[2022-04-10 12:29] LABS: Glucose Point of Care 149 mg/dl (65-105)
--- NOTE | 2022-04-10 16:43 | PM.DS ---
DS: Admitting Diagnosis Discharge Date 04/10/22 Admitting Diagnosis Weakness DS: Discharge Diagnosis Discharge Diagnosis (1) Atrial fibrillation: Qualifiers: Atrial fibrillation type: unspecified Qualified Code(s): I48.91 - Unspecified atrial fibrillation Code(s): I48.91 - Unspecified atrial fibrillation Status: Acute (2) Nausea & vomiting: Code(s): R11.2 - Nausea with vomiting, unspecified Status: Acute (3) Generalized weakness: Code(s): R53.1 - Weakness Status: Acute (4) Leukocytosis: Code(s): D72.829 - Elevated white blood cell count, unspecified Status: Acute (5) Bandemia: Code(s): D72.825 - Bandemia Status: Acute (6) New onset type 2 diabetes mellitus: Code(s): E11.9 - Type 2 diabetes mellitus without complications Status: Acute (7) Essential (primary) hypertension: Code(s): I10 - Essential (primary) hypertension Status: Acute (8) Dehydration: Code(s): E86.0 - Dehydration Status: Acute DS: Summary Hospital Course Reason for hospitalization: 71yo male with HTN here for weakness. Please see H&P for details. Hospital Course: The patient presented to the ED for evaluation of malaise, rigors, and n/v.? He was discovered to have leukocytosis (24K) with bandemia 13%. There was concern for infection but no clear source; Abx started with Vancomycin, Rocephin and Flagyl. UA clear. CXR clear. BCx NGTD. CT A/P showing no acute findings. CXR repeated and showing no acute findings. Mild paranasal sinus disease noted but doubt this would cause these symptoms.? Small area to the left calf but again do not feel this would cause systemic systems. Possibly related to periodontal disease but pain along the jaw line. WBC normalized and no fevers. The patient clinically appeared dry on exam and by history and he was rehydrated judiciously. The patient had an elevated glucose on admission. A1c 7.9. Patient with newly diagnosed DM. Wire Products Inspector consulted. Dietary changes were discussed with patient. Also recommended starting a low impact exercise program with walking. He was started on AccuCheks covering with sliding scale.? Hypoglycemia protocol was available as needed.?We added metformin. Patient was feeling well so discharge planned. While receiving Vanco IV, he developed acute onset nausea and vomiting. He also had left sided headache. Headache resolved quickly. He states the n/v related to Ppost-nasal drainage. Exam shows clear oropharynx. Right tonsil slightly larger than left. No neck masses or significant tenderness. No facial tenderness.Patient continued to have n/v so discharge was cancelled. He mentioned to RN about facial numbness but denied this to me. He had recurrent left sided headache. He denies n/t/w in his extremities. He had epigastric pain but denies chest pain. Labs repeated showing normal WBC, lipase and lactic acid. Procalcitonin was 0.9. CT brain and neck showing no acute findings. Abd xray showing normal BG pattern. Possible left renal stones but CT Abd prior showing left renal cyst including a hemorrhagic one. EKG showing AFib which is new. Rate was controlled. He was placed on tele. [id number] 5 (HTN, Age, DM, CVA).?Do not see contraindication for anticoagulation so Lovenox added and then changed to Eliquis. Cardiology consulted. Metoprolol added. Echo showing EF 665-70% wth indeterminate diastolic function and trace valvular disease. TSH was normal on 04/07/22. Covid and influenza negative on admission. His symptoms resolved. The left lower leg lesion was a thrombosed superficial vein. Patient overall did well and was able to discharged home on 04/10/22. Discharge instructions were discussed in detail with the patient. Changes in medications also discussed including side effects. all questions were answered. Status at Discharge Cognitive/behavioral status at discharge: Stable Time Spent with Patient Time at
--- NOTE | 2022-04-10 18:28 | PC.NURSE ---
Pt is a new type 2 diabetic. RN called sourcing consultant yesterday and today with no response; voice message left. RN went over diabetes teaching, blood sugar checks, and gave pt education materials prior to discharge.
== END 2022-04-10 18:20 | disposition home or self-care (01) | DRG 310 ==
LOC: ANHED 19:10 → ANH3MED 20:07
PROVIDERS: Emergency Medicine; Physician Assistant; Admitting Provider Family Medicine; Emergency Provider Emergency Medicine; PCP Internal Medicine; Visit Provider Internal Medicine
DX: I48.91 Unspecified atrial fibrillation (principal); R11.2 Nausea with vomiting, unspecified; D72.825 Bandemia; E11.9 Type 2 diabetes mellitus without complications; I10 Essential (primary) hypertension; E86.0 Dehydration; Z20.822 Contact with and (suspected) exposure to COVID-19; I45.10 Unspecified right bundle-branch block; R20.0 Anesthesia of skin; R51.9 Headache, unspecified; K21.9 Gastro-esophageal reflux disease without esophagitis; E78.5 Hyperlipidemia, unspecified; Z85.528 Personal history of other malignant neoplasm of kidney; Z87.891 Personal history of nicotine dependence; Z79.82 Long term (current) use of aspirin; Z79.899 Other long term (current) drug therapy; Z88.2 Allergy status to sulfonamides; Z83.3 Family history of diabetes mellitus; Z80.9 Family history of malignant neoplasm, unspecified; Z82.49 Family history of ischemic heart disease and other diseases of the circulatory system; D72.829 Elevated white blood cell count, unspecified
CPT/HCPCS: 36415; 70450; 70490; 71046; 74019; 74177; 80053; 81001; 82948; 83036; 83605; 83690; 83735; 84145; 84443; 84484; 85025; 85610; 85730; 86140; 87040; 87636; 93005; 93306; 93970; 93971; 96361; 96365; 96366; 96367; 96372; 96375; 96376; 97161; 97165; 99285; A9270; C9113; G0378; J0696; J1650; J1815; J2405; J3370; J7030; Q9967

== ENCOUNTER 2022-07-11 14:30 | Outpatient (RCR) | payer MEDICARE, SELFPAY ==
[2022-05-29 10:46] VITALS: BMI 26.4
== END 2022-08-06 14:12 | disposition home or self-care (01) ==
LOC: ANHDMC 14:30
PROVIDERS: PCP Internal Medicine; Visit Provider Internal Medicine
DX: E11.65 Type 2 diabetes mellitus with hyperglycemia (principal); Z71.89 Other specified counseling; Z71.3 Dietary counseling and surveillance
CPT/HCPCS: 97802; G0108; G0109

== ENCOUNTER 2022-11-15 11:00 | Outpatient (RCR) | payer MEDICARE, SELFPAY ==
[2022-11-15 13:43] VITALS: BMI 25.2
== END 2023-01-07 10:43 | disposition home or self-care (01) ==
LOC: ANHDMC 11:00
PROVIDERS: PCP Internal Medicine; Visit Provider Internal Medicine
DX: E11.65 Type 2 diabetes mellitus with hyperglycemia (principal); Z71.89 Other specified counseling; Z71.3 Dietary counseling and surveillance
CPT/HCPCS: 97803; G0109

== ENCOUNTER 2022-12-14 13:06 | Outpatient (CLI) | payer MEDICARE, SELFPAY ==
[2022-12-14 14:25] LABS: Influenza A QL RT-PCR Negative (Negative); Influenza B QL RT-PCR Negative (Negative); RSV RNA, RT-PCR Negative (Negative); SARS-CoV-2 RNA PCR Negative (Negative)
== END 2022-12-14 13:07 | disposition home or self-care (01) ==
LOC: ANHLAB 13:07
PROVIDERS: PCP Internal Medicine; Visit Provider Physician Assistant
DX: R68.89 Other general symptoms and signs (principal)
CPT/HCPCS: 87637

== ENCOUNTER 2024-04-16 11:57 | Emergency (ER) | payer MEDICARE, SELFPAY ==
--- OUTSIDE RECORDS SUMMARY | 2024-04-16 12:00 | XMS_ITS | Clinical Summary ---
Author [place] [facility] [place] [address] [facility] [address] [facility] [address] [place] [address] Care Team Providers Care Senior Database Programmer Name Role Phone Donny Greer MD Primary Care Provider [phone] Allergies Active Allergy Reactions Criticality Noted Date Comments Sulfa (Sulfonamide Antibiotics) Unknown 11/2022 Medications Eliquis 5 mg tablet 04/11/2022 Active metFORMIN (GLUCOPHAGE) 500 mg tablet Take 1 tablet (500 mg total) by mouth 04/08/2022 Active lisinopriL (PRINIVIL,ZESTRI L) 5 mg tablet 02/13/2022 Acti ve montelukast (SINGULAIR) 10 mg tablet 04/26/2022 Active metoprolol XL (TOPROL-XL) 25 mg extended release tablet 04/11/2022 Acti ve famotidine (PEPCID) 20 mg tablet Take 1 tablet (20 mg total) by mouth every 12 (twelve) hours 04/08/2022 Active fluticasone propionate (FLONASE) 50 mcg/actuation nasal spray 04/26/2022 Active Active Problems Problem Noted Date Diagnosed Date Hypertension associated with diabetes 08/10/2022 Chronic anticoagulation 08/10/2022 Paroxysmal atrial fibrillation (CMS/HCC) 023 Surgical History Surgery Date Site/Laterality Comments CATARACT EXTRACTION Medical History Medical History Date Comments Hypertension Atrial fibrillation (CMS/HCC) (HCC) Diabetes mellitus (HCC) History of kidney cancer History of cholecystectomy Cataracts, bilateral Family History Medical History Relation Name Comments Alcohol abuse Father Bladder Cancer Father Emphysema Father Suicide Completion Father No Known Problems Mother Relation Name Status Comments Father Mother Alive Social History Tobacco Use Types Packs/Day Years Used Date Smoking Tobacco: Former Cigarettes 0.3 4 1 976 - 1980 Smokeless Tobacco: Never Tobacco Cessation:Counseling Given: Not Answered Personal Safety Answer Date Recorded Getting School Help Needed Not on file 02/15 Sex and Gender Information Value Date Recorded Sex Assigned at Not on file 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 Gender Identity Not on file Sexual Orientation Not on file Obstetrics History Last Filed Vital Signs Vital Sign Reading Time Taken Comments Blood Pressure 128/68 10/17/2023 2:44 PM CDT Pulse 65 10/17/2023 2:44 PM CDT Temperature - - Respiratory Rate - - Oxygen Saturation 98% 10/17/2023 2:44 PM CDT Inhaled Oxygen Concentration - - Weight 75.8 kg (167 lb) 10/17/2023 2:44 PM CDT Height 167.6 cm (5' 6 ) 10/17/2023 2:44 PM CDT Body Mass Index 26.95 10/17/2023 2:44 PM CDT Plan of Treatment Health Maintenance Due Date Last Done Comments Albumin Creatinine Ratio, Urine 1950 Colon Cancer Screening-Colonoscopy 1950 Depression Screening 1950 Fall Risk Assessment 1950 Hemoglobin A1C 1950 Hepatitis C Screening 1950 eGFR 1950 Dilated Eye Exam 1950 Foot Exam 1950 DTaP/Tdap/Td Vaccine (1 - Tdap) 1960 Hepatitis B Screening 12/17/1967 Zoster Vaccine (1 of 2) 12/17/1999 Abdominal Aortic Aneurysm (A AA) Screen 2014 Well Visit 65+ 2014 Covid-19 Vaccine (3 - 2023-2 5 season) 2023 04/19/2021, 05/09/2020 Influenza Vaccine (#1) 2023 , 11/06/2018, 12/22/2017, Additional history exists Lipid Panel 10/16/2024 10/17/2023, 05/02/2022 Pneumococcal vaccine 65+ Completed 11/06/2018, 01/02 Procedures Procedure Name Priority Date/Time Associated Diagnosis Comments POCT LIPID PANEL Routine 10/17/2023 2:51 PM CDT Lipid screening from Last 3 Months or Most Recently Relevant to Health Maintenance Results * POCT lipid panel (10/17/2023 2:51 PM CDT) Cholesterol, POC 164 mg/dL HDL, POC 32 mg/dL Triglycerides, POC 205 mg/dL LDL Cholesterol POC 91 mg/dL Chol/HDL Ratio, POC 2.9 Non-HDL Cholesterol, POC 132 mg/dL Capillary blood 10/17/2023 2 :51 PM CDT Denia Max NP POINT OF CARE TEST ORDERA BLES Final Result from Last 3 Months or Most Recently Relevant to Health Maintenance Insurance [facility] Care Teams Senior Database Programmer Relationship Specialty Start Date End Date Donny Greer MD [address] [facility] [address] [place] [address] PCP - General Internal Medicine 05/28/18
--- OUTSIDE RECORDS SUMMARY | 2024-04-16 12:00 | XMS_ITS | Referral Summary ---
Author Organization [facility] [place] [address] [place] [address] Care Team Providers Care Owner Name Role Phone Donny Greer MD Primary Care Provider +1- [phone] Allergies Active Allergy Reactions Criticality Noted Date [...] anticoagulation 08/10/2022 Paroxysmal atrial fibrillation (CMS/HCC) 023 Social History Tobacco Use Types Packs/Day Years Used Date Smoking Tobacco: Former Cigarettes 0.3 4 1 976 - 1980 Smokeless Tobacco: Never Tobacco Cessation:Counseling Given: Not Answered Personal Safety Answer Date Recorded Getting School Help Needed Not on file 02/15 Sex and Gender Information Value Date Recorded Sex Assigned at Not on file 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
--- OUTSIDE RECORDS SUMMARY | 2024-04-16 12:00 | XMS_ITS | Clinical Summary ---
Author Organization [facility] Address [address] [address] Phone Care Team Providers Care Biomass Technician Name Role Phone Unavailable Primary Care Provider Unavailabl e Medications polyethylene glycol (MIRALAX) Powder Mix the entire bottle with 64 oz of a clear liquid. Use as directed by the office for colonoscopy prep. 255 g 0 6 Active Social History Tobacco Use Types Packs/Day Years Used Date Smoking Tobacco: Never Assessed Sex and Gender Information Value Date Recorded Sex Assigned at Not on file Legal Sex Male 11:23 PM CDT Gender Identity Not on file Sexual Orientation Not on file Plan of Treatment Health Maintenance Due Date Last Done Comments Hepatitis C Virus (HCV) Screening 1950 TdaP Immunization 1950 Colonoscopy 1994 Colorectal Cancer Screening 1994 Cologuard 12/17/1999 Immunochemical Fecal Occult Blood 12/17/1999 Pneumococcal Immunization (5 0+ years) (1 of 1 - PCV) 12/17/1999 Zoster Immunization (1 of 2) 12/17/1999 Influenza Immunization (#1) 2023 SARS-COV-2 Immunization ( - 2023-25 season) 2023 Respiratory Syncytial Virus (RSV) Immunization (Adult) (1 - 1-dose 75+ series) 2024 Hepatitis B Immunization Aged Out No longer eligible based on patient's age to complete this topic Meningococcal Immunization (ACWY) Aged Out No longer eligible based on patient's age to complete this topic Rotavirus Immunization Aged Out No lo nger eligible based on patient's age to complete this topic Insurance MEDICARE [facility]
[2024-04-16 12:02] VITALS: BP 154/59; PULSE 59; RESP 16; TEMP 36.3; O2SAT 100
--- OUTSIDE RECORDS SUMMARY | 2024-04-16 12:48 | XMS_ITS | Clinical Summary ---
Author Organization [facility] Address [address] [address] Phone Care Team Providers Care Manager Neonatal Name Role Phone Unavailable Primary Care Provider [...] age to complete this topic Insurance MEDICARE [facility]
--- OUTSIDE RECORDS SUMMARY | 2024-04-16 12:48 | XMS_ITS | Clinical Summary ---
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
--- OUTSIDE RECORDS SUMMARY | 2024-04-16 12:48 | XMS_ITS | Referral Summary ---
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 Care Teams Fireboat Operator Relationship Specialty Start Date End Date Donny Greer MD [address] [facility] [address] [place] [address] PCP - General Internal Medicine 05/28/18
--- NOTE | 2024-04-16 12:52 | ED_ITS ---
HPI - Eye Problem General Chief complaint: Eye Problems Stated complaint: woke up with burst blood vessel in right eye Time Seen by Provider: 04/16/24 12:35 History of Present Illness HPI Narrative: Patient is a 73-year-old male who presents ER with concerns for his right eye. He went to bed normal last night and then today he went to his brother's house and was told that his right eye was red. He has no pain. No change in vision. No known trauma. No coughing or sneezing. Patient does take Eliquis. He appears to have subconjunctival hemorrhage of the inferior aspect of the right eye contained only to the sclera. Related Data Home Medications ?Medication ?Instructions ?Recorded ?Confirmed ?Last Taken ?Type multivitamin (One-A-Day Essential 1 tablet PO DAILY 02/15/20 04/08/24 04/06/22 History tablet) diphenhydramine HCl 25 mg capsule 25 mg PO QHS PRN 04/02/23 04/08/24 Unknown History (Allergy Relief (diphenhydramine)) Allergies Allergy/AdvReac Type Severity Reaction Status Date / Time Sulfa (Sulfonamide Allergy Unknown Unknown Verified 04/16/24 11:58 Antibiotics) terazosin Allergy Unknown Verified 04/16/24 11:58 Review of Systems Constitutional: Constitutional: Reports no additional constitutional complaints Eyes: Eyes: Denies change in vision and Denies photophobia Comments: Subconjunctival hemorrhage in the right eye. [facility] Past Medical History Medical History Renal cell carcinoma Status post ablation of right kidney mass. Gastroesophageal reflux disease Hyperlipidemia Essential (primary) hypertension Hypertension Surgical History Surgical History History of hernia repair History of cholecystectomy Family History Family History Father Patient's father is Mother No problems noted. Sibling No problems noted. Other Diabetes mellitus Family history of arthritis Family history of congenital heart disease Family history of malignant neoplasm Social History Social History Social History: Surrogate medical decision maker: Pt is a recent . Code status: Full code. Smoking packs per day: 0.25 Smoking cigarettes per day: 5.0 Years smoked: 1 Smoking pack-years: 0.25 Smoking status: Former smoker Second hand tobacco smoke exposure: No Smoking end date: 03/04/72 Alcohol intake: former Substance use: former Substance use type: marijuana Lack of Transportation: No Lack of Food: Never True Current Housing: I Have Housing Concerned About Future Housing: No Difficulty Paying Gas/Electric Bills: No Difficulty Paying for Meds: No Currently Unemployed: No Education: High School Diploma/GED Difficulty w/ Childcare or Family Care: No Additional living arrangements comments: Pt is a recent . Occupation/Education: retired Gender identity (if verbalized by the patient): Male Spiritual care concerns: No Exam Narrative: GENERAL: Well-appearing, well-nourished, and in no acute distress. HEAD: Normocephalic, atraumatic. EYES: PERRLA and EOMI. Right eye with subconjunctival hemorrhage. No corneal abrasion or foreign body when reviewed with magnification and fluorescein staining. Visual acuities acceptable. There is a scleral abrasion in the o'clock position. ENT: Mucous membranes moist. EXTREMITIES: Normal range of motion. No edema. NEURO: Alert and oriented x3. PSYCH: Normal mood and affect Course Course Emergency Course: Discharge home with topical antibiotic an artificial tears. Recommend holding Eliquis for 24 hours. Vital Signs Vital signs: Vital Signs Temperature 97.3 F L 04/16/24 12:02 Pulse Rate 59 L 04/16/24 12:02 Respiratory Rate 16 04/16/24 12:02 Blood Pressure 154/59 H 04/16/24 12:02 Pulse Oximetry 100 04/16/24 12:02 Oxygen Delivery Room Air 04/16/24 12:02 Temperature 97.3 F L 04/16/24 12:02 Pulse Rate 59 L 04/16/24 12:02 Respiratory Rate 16 04/16/24 12:02 Blood Pressure 154/59 H 04/16/24 12:02 Pulse Oximetry 100 04/16/24 12:02 Oxygen Delivery Room Air 04/16/24 12:02 Discharge Plan Discharge Clinical Impression: Subconjunctival hemorrhage of right eye, Abrasion of sclera of right eye Patient Disposition: Home, Self-Care Condition: Stable Additional Instructions: You have bleeding in the sclera of your eye likely from rubbing her eyes. Hold your Eliquis for 24 hours. Use a topical antibiotic to prevent infection and use artificial tears to keep the eyes moist. Return the ER if you cannot see, you have additional trauma, or you have additional concerns. Patient Language: Faroese Prescriptions: New erythromycin 5 mg/gram (0.5 %) ointment 0.5 inch RIGHT EYE QID Qty: 3.5 0RF Artificial Tears (cmc) 1 % drops 1 drp EACH EYE 4-6XD PRN (Reason: dry eye(s)) Qty: 15 0RF No Action multivitamin [One-A-Day Essential] Tablet 1 tablet PO DAILY diphenhydramine HCl [Allergy Relief(diphenhydramin)] 25 mg capsule 25 mg PO QHS PRN (DME) lancets [OneTouch Delica Plus Lancet] 30 gauge misc Qty: 1 5RF Rx Instructions: May substitute to in-stock and/or covered by insurance lancets. Use As Directed (DME) blood-glucose meter [Accu-Chek Mayuri Plus Meter] Misc See Rx Instructions .Route Qty: 1 0RF Rx Instructions: As directed (DME) Accu-Chek Mayuri Plus test strp Strip See Rx Instructions .Route Qty: 100 3RF Rx Instructions: CHECK BLOOD SUGARS ONCE DAILY fluticasone propionate 50 mcg/actuation spray,suspension 2 spray intranasal DAILY Qty: 48 3RF metformin 500 mg tablet 500 mg PO BIDWMEAL Qty: 180 3RF metoprolol succinate 25 mg tablet extended release 24 hr 25 mg PO DAILY Qty: 90 3RF Eliquis 5 mg tablet 5 mg PO Q12HR Qty: 180 1RF famotidine 20 mg tablet See Rx Instructions .ROUTE .COMPLEX Qty: 90 1RF Dose Instruction: TAKE 1 TABLET BY MOUTH EVERY DAY Rx Instructions: TAKE 1 TABLET BY MOUTH EVERY DAY methylprednisolone [Medrol (Jaskaran)] 4 mg tablets,dose pack See Rx Instructions PO PER PKG DIR Qty: 21 0RF Rx Instructions: PO PER PKG DIR lisinopril 5 mg tablet See Rx Instructions .ROUTE .COMPLEX Qty: 90 0RF Dose Instruction: TAKE 1 TABLET EVERY DAY Rx Instructions: TAKE 1 TABLET EVERY DAY montelukast 10 mg tablet 10 mg PO QHS Qty: 90 3RF Follow-up/Referrals: Harry Alexandre DO [Primary Care Provider] - 1 Week
== END 2024-04-16 14:15 | disposition home or self-care (01) ==
PROVIDERS: Emergency Provider Emergency Medicine; PCP Internal Medicine
DX: H11.31 Conjunctival hemorrhage, right eye (principal); S05.01XA Injury of conjunctiva and corneal abrasion without foreign body, right eye, initial encounter; I10 Essential (primary) hypertension; E78.5 Hyperlipidemia, unspecified; K21.9 Gastro-esophageal reflux disease without esophagitis; Z85.528 Personal history of other malignant neoplasm of kidney; Z90.49 Acquired absence of other specified parts of digestive tract; Z87.891 Personal history of nicotine dependence; Z79.01 Long term (current) use of anticoagulants; X58.XXXA Exposure to other specified factors, initial encounter
CPT/HCPCS: 99283

== ENCOUNTER 2024-05-02 17:53 | Inpatient (IN) | payer MEDICARE, SELFPAY ==
[2024-05-02] VITALS (10 sets, daily range): BP systolic 116–138; BP diastolic 52–101; PULSE 90–110; RESP 20–35; TEMP 37.8; O2SAT 91–94
--- NOTE | ~2024-05-02 | XR_ITS ---
XR chest 2V Ordering provider: Demetria Méndez MD History: 73 years Male with . cough . Comparison: April 08, 2022 FINDINGS: MEDIASTINUM: The cardiac silhouette is not enlarged. LUNGS: No effusions or pneumothorax. Opacification the lung bases seen suggestive of atelectasis vers us pneumonia. OTHER: No free air under the diaphragm. Degenerative changes of the spine. IMPRESSION: Bilateral basilar atelectasis versus pneumonia. Reviewed, dictated and finalized at location A. VISION MAINTENANCE WORKER
--- NOTE | ~2024-05-02 | XR_ITS ---
CHEST RADIOGRAPH CLINICAL HISTORY: sob . COMPARISON: 05/02/2024 TECHNIQUE: Single portable view of the chest. FINDINGS The cardiomediastinal silhouette is partially obscured. Right basilar consolidation as described on previous days radiograph. The remainder of the lungs are clear. IMPRESSION: Right lower lobe infiltrate, as detailed above. Reviewed, dictated and finalized at location A. E CLERK
--- NOTE | 2024-05-02 17:55 | ECG_ITS ---
Test Date: 2024-05-02 17:59:32 Measurements Intervals Lucas Rate: 105 P: 61 DC: 150 QRS: -16 QRSD: 133 T: 30 QT: 342 QTc: 453 Interpretive Statements SINUS TACHYCARDIA RIGHT BUNDLE BRANCH BLOCK BASELINE ARTIFACT- I, II, III, AVR, AVL, AVF ABNORMAL ECG No previous ECG available for comparison Electronically Signed On 05-02-2024 19:08:29 PUSH BUTTON SWITCH ASSEMBLER by Josh Mayfield D.O.
--- OUTSIDE RECORDS SUMMARY | 2024-05-02 17:56 | XMS_ITS | Clinical Summary ---
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 Care Teams Tool Grinding Machine Operator Relationship Specialty Start Date End Date Donny Greer MD [address] [facility] [address] [place] [address] PCP - General Internal Medicine 05/28/18
--- OUTSIDE RECORDS SUMMARY | 2024-05-02 17:56 | XMS_ITS | Clinical Summary ---
Author Organization [facility] Address [address] [address] Phone Care Team Providers Care College President Name Role Phone Unavailable Primary Care Provider [...] age to complete this topic Insurance MEDICARE [facility]
--- OUTSIDE RECORDS SUMMARY | 2024-05-02 17:56 | XMS_ITS | Referral Summary ---
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
[2024-05-02 18:22] LABS: Hematocrit 38.9 % (42.0-52.0); Hemoglobin 13.3 g/dL (14.0-18.0); Mean Corpuscular HGB Conc 34.2 g/dl (32-36); Mean Corpuscular Hemoglobin 31.7 pg (26-34); Mean Corpuscular Volume 92.6 fl (80-100); Mean Platelet Volume 10.2 fl (7.4-10.4); Platelet Count Result 174 k/mm3 (150-375); Red Cell Distribution Width 12.9 % (11.5-14.5); White Blood Count 6.4 K/mm3 (4.5-10.0)
[2024-05-02 18:33] LABS: INR 1.2; Prothrombin Time 15.3 Seconds (11.1-14.7)
[2024-05-02 18:34] LABS: Partial Thromboplastin Time 42.2 Seconds (22.3-36.8)
[2024-05-02 18:37] LABS: Alanine Aminotransferase 25 U/L (6-50); Albumin Level 4.1 g/dL (3.5-5.1); Alkaline Phosphatase 57 U/L (38-126); Anion Gap 15 mmol/L (4-12); Aspartate Amino Transferase 51 U/L (17-59); Bilirubin,Total 1.7 mg/dL (0.2-1.3); Blood Urea Nitrogen 35 mg/dL (9-20); Calcium 8.5 mg/dL (8.4-10.2); Carbon Dioxide 22 mmol/L (22-30); Chloride 98 mmol/L (98-107); Estimated CRCL calculation 29 ml/min; Estimated Glomerular Filt Rate 35; Glucose 142 mg/dL (65-110); Potassium 3.5 mmol/L (3.4-5.0); Sodium 135 mmol/L (137-145)
[2024-05-02 18:49] LABS: Troponin I 0.022 ng/mL (0.000-0.034)
[2024-05-02 18:57] LABS: Influenza A QL RT-PCR Positive (Negative); Influenza B QL RT-PCR Negative (Negative); RSV RNA, RT-PCR Negative (Negative); SARS-CoV-2 RNA PCR Negative (Negative)
[2024-05-02 18:58] LABS: Band Neutrophils Percent 28 % (0-6); Lymphocytes Absolute Manual 0.64 K/mm3 (1.1-4.5); Monocytes Absolute Manual 0.06 K/mm3 (0.1-0.90); Monocytes Percent Manual 1 % (3-9); Neutrophils Absolute Manual 5.69 K/mm3 (1.3-6.7); Neutrophils Percent Manual 61 % (46-73); Platelet Estimate Adequate (Adequate); Total Cells Counted 100
[2024-05-02 18:59] LABS: Schistocytes None Seen
--- NOTE | 2024-05-02 19:22 | PC.NURSE ---
patient has a urinal and is attempting to provide a urine sample at this time
--- NOTE | 2024-05-02 19:25 | ED_ITS ---
HPI - General Adult General Chief complaint: Upper Respiratory Infection Stated complaint: I think I got the flu Time Seen by Provider: 05/02/24 19:03 History of Present Illness HPI narrative: Patient is a 73-year-old male who presents to the emergency department this evening with flu-like symptoms. Patient states that he has just been feeling generally weak, body aches, decreased appetite. Patient admits that he has not really had much to eat or drink in the past few days. Does complain of a nonproductive cough. Denies any nausea vomiting or diarrhea. Patient also states that his urine output has decreased. Patient was complaining of chest pain as well that is worse when he is coughing. No additional symptoms or concerns at this time. Related Data Home Medications ?Medication ?Instructions ?Recorded ?Confirmed ?Last Taken ?Type multivitamin (One-A-Day Essential 1 tablet PO DAILY 02/15/20 04/28/24 04/06/22 History tablet) diphenhydramine HCl 25 mg capsule 25 mg PO QHS PRN 04/02/23 04/28/24 Unknown History (Allergy Relief (diphenhydramine)) Allergies Allergy/AdvReac Type Severity Reaction Status Date / Time Sulfa (Sulfonamide Allergy Unknown Unknown Verified 04/28/24 10:59 Antibiotics) terazosin Allergy Unknown Verified 04/28/24 10:59 Review of Systems 2 Review of Systems: All systems are reviewed and are negative unless stated otherwise in the HPI. [facility] Past Medical History Medical History Cough Renal cell carcinoma Status post ablation of right kidney mass. Gastroesophageal reflux disease Hyperlipidemia Essential (primary) hypertension Hypertension Surgical History Surgical History History of hernia repair History of cholecystectomy Family History Family History Father No problems noted. Mother No problems noted. Sibling No problems noted. Other Diabetes mellitus Family history of arthritis Family history of congenital heart disease Family history of malignant neoplasm Social History Social History Social History: Surrogate medical decision maker: Pt is a recent . Code status: Full code. Smoking packs per day: 0.25 Smoking cigarettes per day: 5.0 Years smoked: 1 Smoking pack-years: 0.25 Smoking status: Former smoker Second hand tobacco smoke exposure: No Smoking end date: 03/04/72 Alcohol intake: former Substance use: former Substance use type: marijuana Do You Feel Safe in your Home?: Yes Lack of Transportation: No Lack of Food: Never True Current Housing: I Have Housing Concerned About Future Housing: No Difficulty Paying Gas/Electric Bills: No Difficulty Paying for Meds: No Currently Unemployed: No Education: High School Diploma/GED Difficulty w/ Childcare or Family Care: No Living arrangements: alone Additional living arrangements comments: Pt is a recent . Occupation/Education: retired Additional occupation/education comments: [employer] Gender identity (if verbalized by the patient): Male Spiritual care concerns: No Exam 2 Narrative: General: Alert, awake, afebrile, in no acute distress. HEENT: PERRL, no rhinorrhea, no post nasal drip, oropharynx clear. Neck: Trachea midline, no JVD, no lymphadenopathy. Cardiovascular: Tachycardic with regular rhythm, no murmurs, rubs or gallops, no peripheral edema. Respiratory: Clear to auscultation bilaterally, no tachypnea, no wheezing, no rhonchi, no rubs, no respiratory distress. Abdomen: Soft, nontender, nondistended, no rebound, no guarding, no peritoneal signs. Musculoskeletal: No joint swelling or deformity, normal muscle tone. Skin: No rashes or petechia, no signs of infection. Psychiatric: Alert and oriented, normal behavior and judgment for situation. Neurological: Alert and oriented to person, place, and time. Follows all commands. No focal deficits, speech is clear and fluent. Course Vital Signs Vital signs: Vital Signs Temperature 100.1 F H 05/02/24 17:56 Pulse Rate 110 H 05/02/24 17:56 Respiratory Rate 20 05/02/24 17:56 Blood Pressure 138/101 H 05/02/24 17:56 Pulse Oximetry 91 05/02/24 17:56 Oxygen Delivery Room Air 05/02/24 17:56 Temperature 100.1 F H 05/02/24 17:56 Pulse Rate 110 H 05/02/24 17:56 Respiratory Rate 20 05/02/24 17:56 Blood Pressure 138/101 H 05/02/24 17:56 Pulse Oximetry 91 05/02/24 17:56 Oxygen Delivery Room Air 05/02/24 19:20 Medical Decision Making MDM Narrative Medical decision making narrative: The patient was evaluated by myself in the emergency department. History is obtained from patient who is an independent historian and physical exam was performed. External medical records were reviewed at this time. IV was established and pertinent tests were ordered. Patient was administered 650 mg of oral Tylenol for low-grade fever and 1 L IV fluid bolus with normal saline. EKG was obtained which revealed sinus tachycardia rate of 105 beats per minute with right bundle-branch. No evidence of acute ischemia. EKG was independently interpreted by me and is currently pending official cardiology read. Laboratory results obtained revealing an acute kidney injury with a creatinine of 1.9 which is significantly elevated the patient's baseline creatinine of 1, otherwise no acute process. Patient's viral swabs returned back positive for influenza A. Urinalysis pending. Imaging studies obtained included CXR which was independently interpreted by me revealing basilar atelectasis versus pneumonia, which is pending final radiology interpretation. At this time, patient was started on IV Rocephin and azithromycin to cover him for pneumonia after blood cultures were obtained. Differential diagnosis considerations include dehydration, electrolyte derangements, acute kidney injury, acute viral syndrome, infectious process such as pneumonia/UTI. Comorbidities impacting this visit include none. I have evaluated and discussed social determinants of health with the patient that could potentially impact subsequent diagnosis and treatment plans. On repeat assessment of the patient, reevaluation revealed that the patient is doing well and is in no acute distress. Patient symptoms have improved since he arrived to our emergency department. Repeat vital signs were all reviewed and noted to be stable. Differential diagnosis and treatment plan were discussed with the patient at bedside. Patient agrees with discussion and after shared medical decision making agrees with admission. All questions were answered to the patient's satisfaction. Case was discussed with the on-call hospitalist Dr. López at 1920 and he accepted admission. Vital Signs Vital Signs: Vital Signs Temperature 100.1 F H 05/02/24 17:56 Pulse Rate 110 H 05/02/24 17:56 Respiratory Rate 20 05/02/24 17:56 Blood Pressure 138/101 H 05/02/24 17:56 Pulse Oximetry 91 05/02/24 17:56 Oxygen Delivery Room Air 05/02/24 17:56 Temperature 100.1 F H 05/02/24 17:56 Pulse Rate 110 H 05/02/24 17:56 Respiratory Rate 20 05/02/24 17:56 Blood Pressure 138/101 H 05/02/24 17:56 Pulse Oximetry 91 05/02/24 17:56 Oxygen Delivery Room Air 05/02/24 19:20 Lab Data 05/02/24 18:10 05/02/24 18:10 Labs: Lab Results 05/02/24 Range/Units 18:10 WBC 6.4 (4.5-10.0) K/mm3 RBC 4.20 L (4.6-6.20) M/mm3 Hgb 13.3 L (14.0-18.0) g/dL Hct 38.9 L (42.0-52.0) % MCV 92.6 (80-100) fl MCH 31.7 (26-34) pg MCHC 34.2 (32-36) g/dl RDW 12.9 (11.5-14.5) % Plt Count 174 (150-375) k/mm3 MPV 10.2 (7.4-10.4) fl Immature Gran % (Auto) Not Reportable Neut % (Auto) Not Reportable Lymph % (Auto) Not Reportable [place] % (Auto) Not Reportable Eos % (Auto) Not Reportable Baso % (Auto) Not Reportable Lymph # (Auto) Not Reportable [place] # (Auto) Not Reportable Eos # (Auto) Not Reportable Baso # (Auto) Not Reportable Abs Immat Gran (auto) Not Reportable Absolute Neuts (auto) Not Reportable Absolute Nucleated RBC Not Reportable Total Counted 100 Neutrophils % (Manual) 61 (46-73) % Band Neutrophils % 28 H (0-6) % Lymphocytes % (Manual) 10.0 L (18-44) % Monocytes % (Manual) 1 L (3-9) % Nucleated RBC % Not Reportable Abs Neuts (Manual) 5.69 (1.3-6.7) K/mm3 Abs Lymphs (Manual) 0.64 L (1.1-4.5) K/mm3 Abs Monocytes (Manual) 0.06 L (0.1-0.90) K/mm3 Platelet Estimate Adequate (Adequate) Schistocytes None seen PT 15.3 H (11.1-14.7) Seconds INR 1.2 APTT 42.2 H (22.3-36.8) Seconds Sodium 135 L (137-145) mmol/L Potassium 3.5 (3.4-5.0) mmol/L Chloride 98 (98-107) mmol/L Carbon Dioxide 22 (22-30) mmol/L Anion Gap 15 H (4-12) mmol/L BUN 35 H D (9-20) mg/dL Creatinine 1.91 H (0.7-1.3) mg/dL Estim Creat Clear Calc 29 ml/min Estimated GFR 35 L (59 - ) Glucose 142 H (65-110) mg/dL Calcium 8.5 (8.4-10.2) mg/dL Total Bilirubin 1.7 H (0.2-1.3) mg/dL AST 51 (17-59) U/L ALT 25 (6-50) U/L Alkaline Phosphatase 57 (38-126) U/L Troponin I 0.022 (0.000-0.034) ng/mL Total Protein 7.0 (6.3-8.2) g/dL Albumin 4.1 (3.5-5.1) g/dL Influenza A (RT-PCR) Positive A (Negative) Influenza B (RT-PCR) Negative (Negative) RSV (RT-PCR) Negative (Negative) SARS-CoV-2 RNA (RT-PCR) Negative (Negative) Discharge Plan Discharge Clinical Impression: DARRYL (acute kidney injury), Influenza A, Pneumonia Patient Disposition: Still a Patient Condition: Improved Patient Language: Argentine Prescriptions: No Action multivitamin [One-A-Day Essential] Tablet 1 tablet PO DAILY lisinopril 5 mg tablet See Rx Instructions .ROUTE .COMPLEX Qty: 90 1RF Dose Instruction: TAKE 1 TABLET EVERY DAY Rx Instructions: TAKE 1 TABLET EVERY DAY diphenhydramine HCl [Allergy Relief(diphenhydramin)] 25 mg capsule 25 mg PO QHS PRN erythromycin 5 mg/gram (0.5 %) ointment 0.5 inch RIGHT EYE QID Qty: 3.5 0RF Artificial Tears (cmc) 1 % drops 1 drp EACH EYE 4-6XD PRN (Reason: dry eye(s)) Qty: 15 0RF (DME) lancets [OneTouch Delica Plus Lancet] [address] [facility] Q[facility]: 1 5RF Rx Instructions: May substitute to in-stock and/or covered by insurance lancets. Use As Directed (DME) blood-glucose meter [Accu-Chek Mayuri Plus Meter] [facility] See Rx Instructions .Route Qty: 1 0RF Rx Instructions: As directed (DME) Accu-Chek Mayuri Plus test strp Strip See Rx Instructions .Route Qty: 100 3RF Rx Instructions: CHECK BLOOD SUGARS ONCE DAILY fluticasone propionate 50 mcg/actuation spray,suspension 2 spray intranasal DAILY Qty: 48 3RF metformin 500 mg tablet 500 mg PO BIDWMEAL Qty: 180 3RF metoprolol succinate 25 mg tablet extended release 24 hr 25 mg PO DAILY Qty: 90 3RF Eliquis 5 mg tablet 5 mg PO Q12HR Qty: 180 1RF montelukast 10 mg tablet 10 mg PO QHS Qty: 90 3RF famotidine 20 mg tablet See Rx Instructions .ROUTE .COMPLEX Qty: 90 1RF Dose Instruction: TAKE 1 TABLET BY MOUTH EVERY DAY Rx Instructions: TAKE 1 TABLET BY MOUTH EVERY DAY Follow-up/Referrals: Aquiles Beltrna APRN [Primary Care Provider] - Time of Disposition: 19:35
--- OUTSIDE RECORDS SUMMARY | 2024-05-02 19:32 | XMS_ITS | Clinical Summary ---
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 Care Teams Fitter And Turner Relationship Specialty Start Date End Date Donny Greer MD [address] [facility] [address] [place] [address] PCP - General Internal Medicine 05/28/18
--- OUTSIDE RECORDS SUMMARY | 2024-05-02 19:32 | XMS_ITS | Referral Summary ---
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
--- OUTSIDE RECORDS SUMMARY | 2024-05-02 19:32 | XMS_ITS | Clinical Summary ---
Author Organization [facility] Address [address] [address] Phone Care Team Providers Care Implementation Engineer Name Role Phone Unavailable Primary Care Provider [...] age to complete this topic Insurance MEDICARE [facility]
[2024-05-02] MEDS: SODIUM CHLORIDE 0.9% IV 1,000 ML 999 ML IV CONT (20:45)
[2024-05-02] MEDS: ACETAMINOPHEN 325 MG TABLET 650 MG PO (20:45)
[2024-05-02 20:56] LABS: Add Urine Microscopic? YES; Appearance Urine Cloudy (Clear); Bacteria Urine None Seen /hpf; Bilirubin Urine 1+ (Negative); Blood Urine 2+ (Negative); Color Urine Dark Yellow (Yellow); Glucose Urine UA Negative (Negative); Hyaline Casts Urine Present /lpf; Ketones Urine Trace mg/dL (Negative); Leukocyte Esterase Ur Negative LEU/UL (Negative); Nitrate Urine Negative (Negative); Protein Urine 2+ mg/dL (Negative); RBC Urine 0-2 /hpf (0-2); Specific Grav Ur 1.022 (1.001-1.035); Squamous Epithelial Cell Urine Few /hpf (Few); WBC Urine 0-5 /hpf (0-3)
--- NOTE | 2024-05-02 20:58 | PM.IMHP ---
H&P: HPI History of Present Illness Date/Time: 05/02/24 20:58 Chief Complaint: 1. Malaise 2. Fatigue Narrative: Gareth Arevalo is a 73 yo M with a mHx significant for A-fib, NIDDM2, Hypertension, Seasonal allergies He resides with his sister and brother in-law who over the last 1-2 weeks have been experiencing flu-like symptoms; he eventually over the last 4-days suffered the same symptoms of myalgia, fatigue, rhinorrhea and eventually a productive cough. His symptoms were aggravated by exertion; alleviated by rest; associated by a poor execution of his ADLs, anorexia, increased somnolence and on the day of presentation, overwhelming fatigue. He denies associated symptoms of hemoptysis, pedal edema, Orthopnea, PND, chest pain, dizziness or LOC Retired, he used to be a summer associate at the [employer]; he smoked tobacco in his younger years and quit more than 20 years ago; he does not drink alcohol or consume recreational/illicit drugs; he at baseline ambulates without an assist device. Work-up findings: WBC 6.45; Hb 13; PLT 174; INR 1.2 Na 135; K 3.5; Cl 98; Co2 22, AG 15; BUN 35; Cr 1.9; GFR 35 AST 51; ALT 25; ALP 57; T. Bili 1.7 Troponin 0.022 ECG: Sinus tachycardia; RBBB; no evidence of ischemia UA: -ve LE; 0-5 WBC;, no bacteria Influenza A+ CXR: Bilateral basilar atelectasis versus pneumonia. Gareth Arevalo will be admitted, evaluated and managed for influenza A infection with acute renal insufficiency, likely 2/2 pre-renal azotemia compounded by exposure to JORDAN-i Review of Systems Review of Systems: All systems reviewed & are unremarkable except as noted in HPI and below PMFSH Past Medical History Medical History Cough Renal cell carcinoma Status post ablation of right kidney mass. Gastroesophageal reflux disease Hyperlipidemia Essential (primary) hypertension Hypertension Surgical History Surgical History History of hernia repair History of cholecystectomy Family History Family History Father No problems noted. Mother No problems noted. Sibling No problems noted. Other Diabetes mellitus Family history of arthritis Family history of congenital heart disease Family history of malignant neoplasm Social History Social History Social History: Surrogate medical decision maker: Pt is a recent . Code status: Full code. Smoking packs per day: 0.25 Smoking cigarettes per day: 5.0 Years smoked: 1 Smoking pack-years: 0.25 Smoking status: Former smoker Second hand tobacco smoke exposure: No Smoking end date: 03/04/72 Alcohol intake: former Substance use: former Substance use type: marijuana Do You Feel Safe in your Home?: Yes Lack of Transportation: No Lack of Food: Never True Current Housing: I Have Housing Concerned About Future Housing: No Difficulty Paying Gas/Electric Bills: No Difficulty Paying for Meds: No Currently Unemployed: No Education: High School Diploma/GED Difficulty w/ Childcare or Family Care: No Living arrangements: alone Additional living arrangements comments: Pt is a recent . Occupation/Education: retired Additional occupation/education comments: [employer] Gender identity (if verbalized by the patient): Male Spiritual care concerns: No Meds Home Medications and Allergies Home Medications ?Medication ?Instructions ?Recorded ?Confirmed ?Type multivitamin (One-A-Day Essential 1 tablet PO DAILY 02/15/20 04/28/24 History tablet) lancets 30 gauge (OneTouch Delica #1 pkg 05/29/22 04/28/24 Rx Plus Lancet) blood-glucose meter (Accu-Chek #1 ea 06/01/22 04/28/24 Rx Mayuri Plus Meter) blood sugar diagnostic (Accu-Chek #100 ea 02/16/23 04/28/24 Rx Myauri Plus test strips) diphenhydramine HCl 25 mg capsule 25 mg PO QHS PRN 04/02/23 04/28/24 History (Allergy Relief (diphenhydramine)) fluticasone propionate 50 2 spray intranasal DAILY #48 grams 08/05/23 04/28/24 Rx mcg/actuation nasal spray,suspension metformin 500 mg tablet 500 mg PO BIDWMEAL #180 tabs 09/02/23 04/28/24 Rx metoprolol succinate 25 mg 25 mg PO DAILY #90 tabs 09/02/23 04/28/24 Rx tablet,extended release 24 hr apixaban 5 mg tablet (Eliquis) 5 mg PO Q12HR #180 tabs 10/18/23 04/28/24 Rx montelukast 10 mg tablet 10 mg PO QHS #90 tabs 04/14/24 04/28/24 Rx carboxymethylcellulose sodium 1 % 1 drp EACH EYE 4-6XD PRN dry 04/16/24 04/28/24 Rx eye drops (Artificial Tears eye(s) #15 mL (carboxymethylcellulose)) erythromycin 5 mg/gram (0.5 %) eye 0.5 inch RIGHT EYE QID #3.5 grams 04/16/24 04/28/24 Rx ointment lisinopril 5 mg tablet See Rx Instructions .Route 04/28/24 04/28/24 Rx .COMPLEX #90 tabs famotidine 20 mg tablet See Rx Instructions .Route 04/30/24 Rx .COMPLEX #90 tabs Allergies Allergy/AdvReac Type Severity Reaction Status Date / Time Sulfa (Sulfonamide Allergy Unknown Unknown Verified 04/28/24 10:59 Antibiotics) terazosin Allergy Unknown Verified 04/28/24 10:59 Vital Signs Vital Signs - 24 hr 05/02/24 17:56 05/02/24 18:21 05/02/24 18:34 Temperature 100.1 F H Pulse Rate 110 H 106 H 102 H Respiratory Rate 20 35 H 34 H Blood Pressure 138/101 H Pulse Oximetry 91 92 92 Oxygen Delivery Room Air 05/02/24 18:45 05/02/24 19:00 05/02/24 19:15 Temperature Pulse Rate 101 H 100 101 H Respiratory Rate 34 H 32 H 21 H Blood Pressure Pulse Oximetry 93 94 Oxygen Delivery 05/02/24 19:20 05/02/24 19:31 05/02/24 19:47 Temperature Pulse Rate 98 97 Respiratory Rate 27 H 32 H Blood Pressure Pulse Oximetry 93 Oxygen Delivery Room Air 05/02/24 20:00 Temperature Pulse Rate 98 Respiratory Rate 32 H Blood Pressure Pulse Oximetry 93 Oxygen Delivery Exam Const: General: comfortable and no acute distress HENMT: Ears: TM's normal bilaterally Face/Nose/Sinus: Normal nares present Eyes: General: appearance normal, both eyes and all related structures Pupils: Equal, round and reactive pupils present EOM: EOMs intact bilaterally Neck: Neck: supple Resp: Effort & Inspection: normal respiratory effort Auscultation: rhonchi lower bilaterally Cardio: Rate: regular rate Rhythm: abnormal rhythm GI: GI Palp: Yes Soft to palpation Auscultation: normal bowel sounds Skin: General skin exam: normal color Neuro: General: gait normal Motor exam (neuro): 5/5 motor strength present throughout and Normal motor muscle tone present throughout Extrem: General: normal to inspection Psych: Mental Status: mental status grossly normal H&P: Results Labs Labs: Short CBC 05/02/24 Range/Units 18:10 WBC 6.4 (4.5-10.0) K/mm3 Hgb 13.3 L (14.0-18.0) g/dL Hct 38.9 L (42.0-52.0) % Plt Count 174 (150-375) k/mm3 BMP 05/02/24 18:10 Sodium 135 L Potassium 3.5 Chloride 98 Carbon Dioxide 22 BUN 35 H D Creatinine 1.91 H Glucose 142 H Calcium 8.5 Cardiac Enzymes 05/02/24 Range/Units 18:10 Troponin I 0.022 (0.000-0.034) ng/mL Liver Function 05/02/24 Range/Units 18:10 Total Bilirubin 1.7 H (0.2-1.3) mg/dL AST 51 (17-59) U/L ALT 25 (6-50) U/L Alkaline Phosphatase 57 (38-126) U/L Albumin 4.1 (3.5-5.1) g/dL Urine 05/02/24 Range/Units 20:37 Urine Color Dark yellow (Yellow) Urine Appearance Cloudy H (Clear) Urine pH 5.0 (5.0-9.0) Ur Specific [place] 1.022 (1.001-1.035) Urine Protein 2+ H (Negative) mg/dL Urine Glucose (UA) Negative (Negative) mg/dL Assessment and Plan Assessment and plan (1) Influenza A: Code(s): J10.1 - Influenza due to other identified influenza virus with other respiratory manifestations Status: Acute (2) Physical deconditioning: Code(s): R53.81 - Other malaise Status: Acute (3) Acute renal insufficiency: Code(s): N28.9 - Disorder of kidney and ureter, unspecified Status: Acute Plan Acute and principal conditions 1. Influenza A infection 2. Acute renal insufficiency 3. Physical deconditioning. 4. Community acquired pneumonia Rx: A. IVFs; Monitor renal insufficiency; avoid nephrotoxins B. Hold JORDAN-i; substitute with Amlodipine C. PT eval and Rx; Falls and safety precautions. D. Ceftriaxone, Azithromycin, Anti-tussives; IS E. Blood cultures. Chronic and stable conditions 1. Seasonal allergies. 2. NIDDM2. Basal+correctional insulin regimen 3. GERD. 4. Hx of A-fib. Miscellaneous care 1. Code status. Full 2. Nutrition. Heart healthy 3. VTE prophylaxis. SCDs; Apixaban Hospitalist [facility] Advance Care Plan I have confirmed that the patient's Advanced Care Plan is present, code status is documented, or surrogate decision maker is listed in patient medical record.: Yes Medication Reconciliation I have utilized all available resources to obtain, update and review the patients current medications (includes all prescriptions, OTC, herbals, cannabis, and nutritional supplements).: Yes The patient is not eligible for med reconciliation; the patient is in a emergent medical situation where delaying treatment would jeopardize the patients health.: Yes
[2024-05-02 22:07] LABS: Lactic Acid Reflex 2.8 mmol/L (0.7-2.0)
[2024-05-02 22:58] LABS: Glucose Point of Care 141 mg/dl (65-105)
[2024-05-02] MEDS: SODIUM CHLORIDE 0.9% IV 1,000 ML 100 ML IV CONT (23:25)
[2024-05-02] MEDS: AZITHROMYCIN 500 MG/NS 250 ML 500 MG/250 ML BAG 250 MG IVPB (23:26)
[2024-05-03] VITALS (14 sets, daily range): BP systolic 106–132; BP diastolic 53–70; PULSE 77–102; RESP 16–20; TEMP 36.8–38.1; O2SAT 92–97
[2024-05-03 00:54] LABS: Reflex Lactic Acid Yes or No Add Lactic
[2024-05-03 01:53] LABS: Lactic Acid 3.7 mmol/L (0.7-2.0)
[2024-05-03] MEDS: ACETAMINOPHEN 325 MG TABLET 650 MG PO ×3 (04:14→14:26)
--- OUTSIDE RECORDS SUMMARY | 2024-05-03 08:00 | XMS_ITS | Clinical Summary ---
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 Care Teams Inside Parts Sales Relationship Specialty Start Date End Date Donny Greer MD [address] [facility] [address] [place] [address] PCP - General Internal Medicine 05/28/18
--- OUTSIDE RECORDS SUMMARY | 2024-05-03 08:00 | XMS_ITS | Clinical Summary ---
Author Organization [facility] Address [address] [address] Phone Care Team Providers Care Retail Advisor Name Role Phone Unavailable Primary Care Provider [...] age to complete this topic Insurance MEDICARE [facility]
--- OUTSIDE RECORDS SUMMARY | 2024-05-03 08:00 | XMS_ITS | Referral Summary ---
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 [address] [place] [address] PCP - General Internal Medicine 05/28/18
--- NOTE | 2024-05-03 08:45 | P.PNIM_ITS ---
Progress Note: A&P Assessment and Plan (1) Influenza A: Code(s): J10.1 - Influenza due to other identified influenza virus with other respiratory manifestations Status: Acute (2) Physical deconditioning: Code(s): R53.81 - Other malaise Status: Acute (3) Acute renal insufficiency: Code(s): N28.9 - Disorder of kidney and ureter, unspecified Status: Acute Plan Acute and principal conditions 1. Influenza A infection 2. Acute renal insufficiency (Cr/BUN 1.91/35) 3. Physical deconditioning. 4. Community acquired pneumonia Rx: A. IVFs; Monitor renal insufficiency; avoid nephrotoxins B. Hold JORDAN-i; substitute with Amlodipine- monitor BP C. PT eval and Rx; Falls and safety precautions. D. Ceftriaxone, Azithromycin, Anti-tussives; IS E. Blood cultures collected-pending Chronic and stable conditions 1. Seasonal allergies. 2. NIDDM2. Basal+correctional insulin regimen. Hold home metformin. Hypoglycemic protocol 3. GERD- continue famotidine 4. Hx of A-fib. Miscellaneous care 1. Code status. Full 2. Nutrition. Heart healthy 3. VTE prophylaxis. SCDs; Apixaban Time Spent With Patient Time with patient: 25 - 35 minutes Subjective Date/time seen: 05/03/24 08:45 Interval history: Gareth Arevalo is a 73 yo M with a mHx significant for A-fib, NIDDM2, Hypertension, Seasonal allergies admitted for eval and mngmnt of influenza A infection with acute renal insufficiency, likely 2/2 pre-renal azotemia compounded by exposure to JORDAN-inhibitors. Work-up findings: WBC 6.45; Hb 13; PLT 174; INR 1.2 Na 135; K 3.5; Cl 98; Co2 22, AG 15; BUN 35; Cr 1.9; GFR 35 AST 51; ALT 25; ALP 57; T. Bili 1.7 Troponin 0.022 ECG: Sinus tachycardia; RBBB; no evidence of ischemia UA: -ve LE; 0-5 WBC;, no bacteria Influenza A+ CXR: Bilateral basilar atelectasis versus pneumonia. Pt is seen and examined. He reports feeling somewhat better. Alert, oriented. NO n/v/d. Review of Systems Review of Systems: All systems reviewed & are unremarkable except as noted in HPI and below Exam 2 Const: General: comfortable and no acute distress HENMT: Ears: TM's normal bilaterally Face/Nose/Sinus: Normal nares present Eyes: General: appearance normal, both eyes and all related structures P upils: Equal, round and reactive pupils present EOM: EOMs intact bilaterally Neck: Neck: supple Resp: Effort & Inspection: normal respiratory effort Auscultation: rhonchi lower bilaterally Cardio: Rate: regular rate Rhythm: abnormal rhythm GI: Auscultation: normal bowel sounds Skin: General skin exam: normal color Neuro: General: gait normal Cranial nerves: Yes Equal, round and reactive pupils present Motor exam (neuro): 5/5 motor strength present throughout and Normal motor muscle tone present throughout Extrem: General: normal to inspection Psych: Mental Status: mental status grossly normal Objective Data Vital Signs Vital Signs: Vital Signs - 24 hr 05/02/24 17:56 05/02/24 18:21 05/02/24 18:34 Temperature 100.1 F H Pulse Rate 110 H 106 H 102 H Respiratory Rate 20 35 H 34 H Blood Pressure 138/101 H Pulse Oximetry 91 92 92 Oxygen Delivery Room Air 05/02/24 18:45 05/02/24 19:00 05/02/24 19:15 Temperature Pulse Rate 101 H 100 101 H Respiratory Rate 34 H 32 H 21 H Blood Pressure Pulse Oximetry 93 94 Oxygen Delivery 05/02/24 19:20 05/02/24 19:31 05/02/24 19:47 Temperature Pulse Rate 98 97 Respiratory Rate 27 H 32 H Blood Pressure Pulse Oximetry 93 Oxygen Delivery Room Air 05/02/24 20:00 05/02/24 22:15 05/03/24 00:00 Temperature 100.1 F H 99.9 F H Pulse Rate 98 90 90 Respiratory Rate 32 H 22 H 16 Blood Pressure 116/52 L 106/59 L Pulse Oximetry 93 92 95 Oxygen Delivery 05/03/24 00:00 05/03/24 02:17 05/03/24 04:00 Temperature Pulse Rate 89 96 Respiratory Rate Blood Pressure Pulse Oximetry Oxygen Delivery Room Air 05/03/24 04:00 05/03/24 04:14 05/03/24 05:15 Temperature 100.6 F H 100.6 F H 99.1 F Pulse Rate 98 Respiratory Rate 20 Blood Pressure 125/53 L Pulse Oximetry 92 Oxygen Delivery Intake/Output Intake/Output: Intake & Output 02/27/25 02/28/25 03/01/25 03/02/25 23:59 23:59 23:59 23:59 Intake Total 1050 350 Output Total 300 Balance 750 350 Meds/Results Medications: Active Medications Generic Name Dose Route Start Last Admin Trade Name Freq PRN Reason Stop Dose Admin Acetaminophen 650 mg 05/02/24 20:49 05/03/24 04:14 Acetaminophen 325 Mg Tablet PO 650 mg Q4H PRN Administration Mild Pain (1-3) or Fever Albuterol/Ipratropium 3 ml 05/02/24 20:49 Ipratropium 0.5 Mg/Albuterol Sulfate 2.5 Mg Ampul.Neb 3 Ml INHALATION Q4HRT PRN shortness of breath/Wheezing Guaifenesin/Dextromethorphan 10 ml 05/02/24 20:49 Guaifenesin/Dextromethorphan 10 Ml Udc PO Q4H PRN Cough Azithromycin 500 mg in 250 mls @ 250 mls/hr 05/02/24 21:00 05/02/24 23:26 Zithromax IVPB 250 mls/hr Q24H AGUSTINA Administration Sodium Chloride 1,000 mls @ 100 mls/hr 05/02/24 20:50 05/02/24 23:25 Normal Saline Iv IV CONT 100 mls/hr .Q10H AGUSTINA Administration Ceftriaxone Sodium 1 gm in 50 mls @ 100 mls/hr 05/03/24 21:00 Rocephin 1 Gm/Ns 50 Ml IVPB 05/09/24 20:59 Q24H AGUSTINA Melatonin 5 mg 05/02/24 20:49 Melatonin 5 Mg Tablet PO HS PRN Insomnia Polyethylene Glycol 17 gm 05/02/24 20:49 Polyethylene Glycol 3350 17 Gm Powd.Pack PO QAM PRN Constipation Prochlorperazine Edisylate 10 mg 05/02/24 20:49 Prochlorperazine Edisylate 10 Mg/2 Ml Vial IV PUSH Q6H PRN Nausea And Vomiting Radiology Results: ITS Impressions Chest X-Ray 05/02/24 18:53 IMPRESSION: Bilateral basilar atelectasis versus pneumonia. Labs Labs: Laboratory Results - last 24 hr 05/02/24 05/02/24 05/02/24 18:10 20:37 21:45 WBC 6.4 RBC 4.20 L Hgb 13.3 L Hct 38.9 L MCV 92.6 MCH 31.7 MCHC 34.2 RDW 12.9 Plt Count 174 MPV 10.2 Immature Gran % (Auto) Not Reportable Neut % (Auto) Not Reportable Lymph % (Auto) Not Reportable [place] % (Auto) Not Reportable Eos % (Auto) Not Reportable Baso % (Auto) Not Reportable Lymph # (Auto) Not Reportable [place] # (Auto) Not Reportable Eos # (Auto) Not Reportable Baso # (Auto) Not Reportable Abs Immat Gran (auto) Not Reportable Absolute Neuts (auto) Not Reportable Absolute Nucleated RBC Not Reportable Total Counted 100 Neutrophils % (Manual) 61 Band Neutrophils % 28 H Lymphocytes % (Manual) 10.0 L Monocytes % (Manual) 1 L Nucleated RBC % Not Reportable Abs Neuts (Manual) 5.69 Abs Lymphs (Manual) 0.64 L Abs Monocytes (Manual) 0.06 L Platelet Estimate Adequate Schistocytes None seen PT 15.3 H INR 1.2 APTT 42.2 H Sodium 135 L Potassium 3.5 Chloride 98 Carbon Dioxide 22 Anion Gap 15 H BUN 35 H D Creatinine 1.91 H Estim Creat Clear Calc 29 Estimated GFR 35 L Glucose 142 H POC Capillary Glucose Lactic Acid 2.8 H Calcium 8.5 Total Bilirubin 1.7 H AST 51 ALT 25 Alkaline Phosphatase 57 Troponin I 0.022 Total Protein 7.0 Albumin 4.1 Urine Color Dark yellow Urine Appearance Cloudy H Urine pH 5.0 Ur Specific [place] 1.022 Urine Protein 2+ H Urine Glucose (UA) Negative Urine Ketones Trace H Ur Blood (Man) 2+ H Urine Nitrate Negative Urine Bilirubin 1+ H Urine Urobilinogen 1.0 Leukocyte Esterase Rfl Negative Urine RBC 0-2 Urine WBC 0-5 Ur Squamous Epith Cells Few Urine Bacteria None seen Urine Casts 11-20 Hyaline Casts Present Influenza A (RT-PCR) Positive A Influenza B (RT-PCR) Negative RSV (RT-PCR) Negative SARS-CoV-2 RNA (RT-PCR) Negative 05/02/24 05/03/24 22:48 01:39 WBC RBC Hgb Hct MCV MCH MCHC RDW Plt Count MPV Immature Gran % (Auto) Neut % (Auto) Lymph % (Auto) [place] % (Auto) Eos % (Auto) Baso % (Auto) Lymph # (Auto) [place] # (Auto) Eos # (Auto) Baso # (Auto) Abs Immat Gran (auto) Absolute Neuts (auto) Absolute Nucleated RBC Total Counted Neutrophils % (Manual) Band Neutrophils % Lymphocytes % (Manual) Monocytes % (Manual) Nucleated RBC % Abs Neuts (Manual) Abs Lymphs (Manual) Abs Monocytes (Manual) Platelet Estimate Schistocytes PT INR APTT Sodium Potassium Chloride Carbon Dioxide Anion Gap BUN Creatinine Estim Creat Clear Calc Estimated GFR Glucose POC Capillary Glucose 141 H Lactic Acid 3.7 H Calcium Total Bilirubin AST ALT Alkaline Phosphatase Troponin I Total Protein Albumin Urine Color Urine Appearance Urine pH Ur Specific [place] Urine Protein Urine Glucose (UA) Urine Ketones Ur Blood (Man) Urine Nitrate Urine Bilirubin Urine Urobilinogen Leukocyte Esterase Rfl Urine RBC Urine WBC Ur Squamous Epith Cells Urine Bacteria Urine Casts Hyaline Casts Influenza A (RT-PCR) Influenza B (RT-PCR) RSV (RT-PCR) SARS-CoV-2 RNA (RT-PCR)
[2024-05-03 09:08] LABS: Hematocrit 31.6 % (42.0-52.0); Hemoglobin 10.7 g/dL (14.0-18.0); Mean Corpuscular HGB Conc 33.9 g/dl (32-36); Mean Corpuscular Hemoglobin 31.7 pg (26-34); Mean Corpuscular Volume 93.5 fl (80-100); Mean Platelet Volume 10.3 fl (7.4-10.4); Platelet Count Result 134 k/mm3 (150-375); Red Blood Count 3.38 M/mm3 (4.6-6.20); White Blood Count 4.2 K/mm3 (4.5-10.0)
[2024-05-03 09:16] LABS: Alanine Aminotransferase 20 U/L (6-50); Albumin Level 2.9 g/dL (3.5-5.1); Alkaline Phosphatase 43 U/L (38-126); Anion Gap 10 mmol/L (4-12); Aspartate Amino Transferase 43 U/L (17-59); Bilirubin,Total 1.3 mg/dL (0.2-1.3); Blood Urea Nitrogen 34 mg/dL (9-20); Calcium 7.6 mg/dL (8.4-10.2); Carbon Dioxide 25 mmol/L (22-30); Chloride 103 mmol/L (98-107); Estimated CRCL calculation 33 ml/min; Estimated Glomerular Filt Rate 40; Glucose 119 mg/dL (65-110); Potassium 3.5 mmol/L (3.4-5.0); Sodium 138 mmol/L (137-145)
[2024-05-03] MEDS: METOPROLOL SUCCINATE EXT REL 25 MG TABCR PO (09:59)
[2024-05-03] MEDS: APIXABAN 5 MG TABLET PO ×2 (09:59→21:54)
[2024-05-03] MEDS: FAMOTIDINE 20 MG TABLET BY MOUTH (09:59)
[2024-05-03] MEDS: SODIUM CHLORIDE 0.9% IV 1,000 ML 100 ML IV CONT ×2 (10:00→22:10)
[2024-05-03] MEDS: guaiFENesin/DEXTROMETHORPHAN 10 ML UDC PO ×2 (10:07→14:26)
[2024-05-03 10:12] LABS: Band Neutrophils Percent 11 % (0-6); Lymphocytes Absolute Manual 0.58 K/mm3 (1.1-4.5); Monocytes Absolute Manual 0.08 K/mm3 (0.1-0.90); Monocytes Percent Manual 2 % (3-9); Neutrophils Absolute Manual 3.52 K/mm3 (1.3-6.7); Neutrophils Percent Manual 73 % (46-73); Platelet Estimate Slightly Decreased (Adequate); Schistocytes None Seen; Total Cells Counted 100
[2024-05-03 12:14] LABS: Glucose Point of Care 210 mg/dl (65-105)
[2024-05-03] MEDS: INSULIN ASPART (*BKC) 100 UNITS/ML SUB-Q (14:26)
[2024-05-03 16:51] LABS: Glucose Point of Care 125 mg/dl (65-105)
[2024-05-03 19:46] LABS: Lactic Acid Reflex 1.5 mmol/L (0.7-2.0)
[2024-05-03 21:40] LABS: Glucose Point of Care 162 mg/dl (65-105)
[2024-05-03] MEDS: MONTELUKAST SODIUM 10 MG TABLET PO (21:54)
[2024-05-03] MEDS: AZITHROMYCIN 500 MG/NS 250 ML 500 MG/250 ML BAG 250 MG IVPB (21:54)
[2024-05-04] VITALS (7 sets, daily range): BP systolic 107–121; BP diastolic 39–69; PULSE 85–105; RESP 16–18; TEMP 36.7–37; O2SAT 93–99
[2024-05-04] MEDS: guaiFENesin/DEXTROMETHORPHAN 10 ML UDC PO ×3 (05:17→21:23)
[2024-05-04 07:16] LABS: Hematocrit 30.4 % (42.0-52.0); Hemoglobin 10.2 g/dL (14.0-18.0); Immature Granulocyte Absolute 0.02 K/mm3 (0.00-0.031); Immature Granulocyte Percent A 0.4 % (0-0.5); Lymphocytes Absolute Auto 0.47 K/mm3 (0.9-3.2); Lymphocytes Percent Auto 9.5 % (18.3-44.2); Mean Corpuscular HGB Conc 33.6 g/dl (32-36); Mean Corpuscular Volume 92.4 fl (80-100); Mean Platelet Volume 10.5 fl (7.4-10.4); Monocytes Absolute Auto 0.2 K/mm3 (0.1-0.6); Neutrophils Absolute Auto 4.3 K/mm3 (1.3-6.7); Neutrophils Percent Auto 86.1 % (45.5-73.1); Platelet Count Result 151 k/mm3 (150-375); Red Blood Count 3.29 M/mm3 (4.6-6.20); Red Cell Distribution Width 12.7 % (11.5-14.5); White Blood Count 4.9 K/mm3 (4.5-10.0)
[2024-05-04 07:51] LABS: Alanine Aminotransferase 20 U/L (6-50); Albumin Level 2.6 g/dL (3.5-5.1); Alkaline Phosphatase 47 U/L (38-126); Anion Gap 8 mmol/L (4-12); Aspartate Amino Transferase 35 U/L (17-59); Bilirubin,Total 0.8 mg/dL (0.2-1.3); Blood Urea Nitrogen 21 mg/dL (9-20); Calcium 7.7 mg/dL (8.4-10.2); Carbon Dioxide 25 mmol/L (22-30); Chloride 103 mmol/L (98-107); Estimated CRCL calculation 46 ml/min; Estimated Glomerular Filt Rate 60; Glucose 125 mg/dL (65-110); Potassium 3.2 mmol/L (3.4-5.0); Sodium 136 mmol/L (137-145)
[2024-05-04 08:11] LABS: Glucose Point of Care 112 mg/dl (65-105)
--- NOTE | 2024-05-04 09:19 | P.PNIM_ITS ---
Progress Note: A&P Assessment and Plan (1) Influenza A: Code(s): J10.1 - Influenza due to other identified influenza virus with other respiratory manifestations Status: Acute Assessment and Plan: Robitussin scheduled Tylenol as needed (2) Pneumonia: Code(s): J18.9 - Pneumonia, unspecified organism Status: Acute Assessment and Plan: Azithromycin and Rocephin Blood cultures pending Repeat chest x-ray pending Will keep on IV antibiotics for now as patient is feeling worse (3) Physical deconditioning: Code(s): R53.81 - Other malaise Status: Acute Assessment and Plan: With fall PT OT evaluate and treat (4) Acute renal insufficiency: Code(s): N28.9 - Disorder of kidney and ureter, unspecified Status: Acute Assessment and Plan: IV hydration Daily BMP Avoid nephrotoxic medications dACE-i; substitute with Amlodipine- monitor BP (5) Diabetes: Code(s): E11.9 - Type 2 diabetes mellitus without complications Status: Acute Assessment and Plan: Basal+correctional insulin regimen. Hold home metformin. Hypoglycemic protocol Plan Chronic and stable conditions 1. Seasonal allergies. 2. NIDDM2. 3. GERD- continue famotidine 4. Hx of A-fib. Miscellaneous care 1. Code status. Full 2. Nutrition. Heart healthy 3. VTE prophylaxis. SCDs; Apixaban Time Spent With Patient Time with patient: Greater than 35 minutes Subjective Date/time seen: 05/04/24 09:19 Interval history: Gareth Arevalo is a 73 yo M with a mHx significant for A-fib, NIDDM2, Hypertension, Seasonal allergies admitted for eval and mngmnt of influenza A infection with acute renal insufficiency, likely 2/2 pre-renal azotemia compounded by exposure to JORDAN-inhibitors. Patient states that he feels worse today, chest x-ray pending will continue with IV antibiotics Review of Systems Review of Systems: All systems reviewed & are unremarkable except as noted in HPI and below Exam Narrative: General: well appearing, appears stated age. HEENT: normocephalic, atraumatic. Mucous membranes moist. EOMI, PERRLA, bilateral sclera anicteric, no conjunctival injection. Neck supple without JVD, lymphadenopathy, or bruit. Respiratory: clear to ascultation bilaterally. No rales/rhonic/wheezes. Cardiovascular: Regular rate and rhythm, normal S1-S2 upon ascultation. No murmurs, rubs, or clicks. PMI is nondisplaced, capillary refill less than 3 second. Abdomen: Soft, round, no pulsatile masses, nondistended and nontender. No rebound, no guarding. No CVA tenderness, no hepatosplenomegaly. Bowel sounds present to all four quadrants. No high pitch or tinkling sounds, resonant to percussion. Extremities: No cyanosis, clubbing, or edema present. Pulses are palpable 2/2. Active ROM to all four extremities. Neuro: Alert and orientated x 4. PERRLA. Cranial nerves 2-12 intact without focal deficit. Skin: Warm, dry, and intact, without rash, erythema, or lesion. Psych: pleasant, cooperative, normal speech, normal affect, no hallucinations, no dysarthia Objective Data Vital Signs Vital Signs: Vital Signs - 24 hr 05/03/24 09:59 05/03/24 09:59 05/03/24 10:59 Temperature 99.1 F 98.8 F Pulse Rate 92 Respiratory Rate Blood Pressure Pulse Oximetry Oxygen Delivery 05/03/24 11:15 05/03/24 12:03 05/03/24 14:38 Temperature 98.7 F 98.3 F Pulse Rate 88 93 79 Respiratory Rate 20 20 Blood Pressure 131/60 132/58 L Pulse Oximetry 96 97 Oxygen Delivery 05/03/24 15:26 05/03/24 16:02 05/03/24 18:25 Temperature 98.3 F 98.9 F Pulse Rate 77 99 Respiratory Rate 20 Blood Pressure 118/58 L Pulse Oximetry 94 Oxygen Delivery 05/03/24 20:00 05/03/24 20:00 05/03/24 20:00 Temperature 98.2 F Pulse Rate 102 H 95 Respiratory Rate 18 Blood Pressure 115/70 Pulse Oximetry 96 Oxygen Delivery Room Air 05/04/24 00:00 05/04/24 04:00 05/04/24 04:00 Temperature 98.1 F Pulse Rate 105 H 99 94 Respiratory Rate 18 Blood Pressure 121/69 Pulse Oximetry 97 Oxygen Delivery Intake/Output Intake/Output: Intake & Output 05/01/24 05/02/24 05/03/24 05/04/24 23:59 23:59 23:59 23:59 Intake Total 1050 3810 550 Output Total 300 Balance 750 3810 550 Meds/Results Medications: Active Medications Generic Name Dose Route Start Last Admin Trade Name Freq PRN Reason Stop Dose Admin Acetaminophen 650 mg 05/02/24 20:49 05/03/24 14:26 Acetaminophen 325 Mg Tablet PO 650 mg Q4H PRN Administration Mild Pain (1-3) or Fever Albuterol/Ipratropium 3 ml 05/02/24 20:49 Ipratropium 0.5 Mg/Albuterol Sulfate 2.5 Mg Ampul.Neb 3 Ml INHALATION Q4HRT PRN shortness of breath/Wheezing Apixaban 5 mg 05/03/24 09:00 05/03/24 21:54 Apixaban 5 Mg Tablet PO 5 mg Q12HR AGUSTINA Administration Dextrose 12.5 gm 05/03/24 08:52 Dextrose 50% 25 Gm/50 Ml Syringe IV PUSH PRN PRN Hypoglycemia Protocol Famotidine 20 mg 05/03/24 09:05 05/03/24 09:59 Famotidine 20 Mg Tablet BY MOUTH 20 mg QAM AGUSTINA Administration Glucagon 1 mg 05/03/24 08:52 Glucagon For Inj 1 Mg Vial IM PRN PRN Hypoglycemia Protocol Glucose 15 gm 05/03/24 08:52 Glucose Oral Gel 15 Gm Of Glucse In 37.5 Gm Tube PO PRN PRN Hypoglycemia Protocol Guaifenesin/Dextromethorphan 10 ml 05/02/24 20:49 05/04/24 05:17 Guaifenesin/Dextromethorphan 10 Ml Udc PO 10 ml Q4H PRN Administration Cough Azithromycin 500 mg in 250 mls @ 250 mls/hr 05/02/24 21:00 05/03/24 21:54 Zithromax IVPB 250 mls/hr Q24H AGUSTINA Administration Sodium Chloride 1,000 mls @ 100 mls/hr 05/02/24 20:50 05/03/24 22:10 Normal Saline Iv IV CONT 100 mls/hr .Q10H AGUSTINA Administration Ceftriaxone Sodium 1 gm in 50 mls @ 100 mls/hr 05/03/24 21:00 05/03/24 21:54 Rocephin 1 Gm/Ns 50 Ml IVPB 05/09/24 20:59 100 mls/hr Q24H AGUSTINA Administration Dextrose 1,000 mls @ 100 mls/hr 05/03/24 08:52 Dextrose 5% 1,000 Ml IVPB PRN PRN Hypoglycemia Protocol Insulin Aspart 2 - 5 units 05/03/24 09:05 05/03/24 17:06 Insulin Aspart (*Bkc) 100 Units/Ml SUB-Q Not Given TIDWM AGUSTINA Protocol Melatonin 5 mg 05/02/24 20:49 Melatonin 5 Mg Tablet PO HS PRN Insomnia Metoprolol Succinate 25 mg 05/03/24 09:00 05/03/24 09:59 Metoprolol Succinate Ext Rel 25 Mg Tabcr PO 25 mg DAILY AGUSTINA Administration Montelukast Sodium 10 mg 05/03/24 21:00 05/03/24 21:54 Montelukast Sodium 10 Mg Tablet PO 10 mg QHS AGUSTINA Administration Polyethylene Glycol 17 gm 05/02/24 20:49 Polyethylene Glycol 3350 17 Gm Powd.Pack PO QAM PRN Constipation Prochlorperazine Edisylate 10 mg 05/02/24 20:49 Prochlorperazine Edisylate 10 Mg/2 Ml Vial IV PUSH Q6H PRN Nausea And Vomiting Radiology Results: ITS Impressions Chest X-Ray 05/02/24 18:53 IMPRESSION: Bilateral basilar atelectasis versus pneumonia. Labs Labs: Laboratory Results - last 24 hr 05/03/24 05/03/24 05/03/24 08:14 12:07 16:48 WBC 4.2 L RBC 3.38 L Hgb 10.7 L Hct 31.6 L MCV 93.5 MCH 31.7 MCHC 33.9 RDW 13.0 Plt Count 134 L MPV 10.3 Immature Gran % (Auto) Not Reportable Neut % (Auto) Not Reportable Lymph % (Auto) Not Reportable [place] % (Auto) Not Reportable Eos % (Auto) Not Reportable Baso % (Auto) Not Reportable Lymph # (Auto) Not Reportable [place] # (Auto) Not Reportable Eos # (Auto) Not Reportable Baso # (Auto) Not Reportable Abs Immat Gran (auto) Not Reportable Absolute Neuts (auto) Not Reportable Absolute Nucleated RBC Not Reportable Total Counted 100 Neutrophils % (Manual) 73 Band Neutrophils % 11 H Lymphocytes % (Manual) 14.0 L Monocytes % (Manual) 2 L Nucleated RBC % Not Reportable Abs Neuts (Manual) 3.52 Abs Lymphs (Manual) 0.58 L Abs Monocytes (Manual) 0.08 L Platelet Estimate Slightly decreased Schistocytes None seen Sodium Potassium Chloride Carbon Dioxide Anion Gap BUN Creatinine Estim Creat Clear Calc Estimated GFR Glucose POC Capillary Glucose 210 H 125 H Lactic Acid Calcium Total Bilirubin AST ALT Alkaline Phosphatase Total Protein Albumin 05/03/24 05/03/24 05/04/24 19:23 20:28 06:29 WBC 4.9 RBC 3.29 L Hgb 10.2 L Hct 30.4 L MCV 92.4 MCH 31.0 MCHC 33.6 RDW 12.7 Plt Count 151 MPV 10.5 H Immature Gran % (Auto) 0.4 Neut % (Auto) 86.1 H Lymph % (Auto) 9.5 L [place] % (Auto) 4.0 Eos % (Auto) 0.0 Baso % (Auto) 0.0 L Lymph # (Auto) 0.47 L [place] # (Auto) 0.2 Eos # (Auto) 0.0 Baso # (Auto) 0.0 Abs Immat Gran (auto) 0.02 Absolute Neuts (auto) 4.3 Absolute Nucleated RBC 0.000 Total Counted Neutrophils % (Manual) Band Neutrophils % Lymphocytes % (Manual) Monocytes % (Manual) Nucleated RBC % 0.0 Abs Neuts (Manual) Abs Lymphs (Manual) Abs Monocytes (Manual) Platelet Estimate Schistocytes Sodium 136 L Potassium 3.2 L Chloride 103 Carbon Dioxide 25 Anion Gap 8 BUN 21 H D Creatinine 1.18 Estim Creat Clear Calc 46 Estimated GFR 60 Glucose 125 H POC Capillary Glucose 162 H Lactic Acid 1.5 Calcium 7.7 L Total Bilirubin 0.8 AST 35 ALT 20 Alkaline Phosphatase 47 Total Protein 5.0 L Albumin 2.6 L 05/04/24 07:50 WBC RBC Hgb Hct MCV MCH MCHC RDW Plt Count MPV Immature Gran % (Auto) Neut % (Auto) Lymph % (Auto) [place] % (Auto) Eos % (Auto) Baso % (Auto) Lymph # (Auto) [place] # (Auto) Eos # (Auto) Baso # (Auto) Abs Immat Gran (auto) Absolute Neuts (auto) Absolute Nucleated RBC Total Counted Neutrophils % (Manual) Band Neutrophils % Lymphocytes % (Manual) Monocytes % (Manual) Nucleated RBC % Abs Neuts (Manual) Abs Lymphs (Manual) Abs Monocytes (Manual) Platelet Estimate Schistocytes Sodium Potassium Chloride Carbon Dioxide Anion Gap BUN Creatinine Estim Creat Clear Calc Estimated GFR Glucose POC Capillary Glucose 112 H Lactic Acid Calcium Total Bilirubin AST ALT Alkaline Phosphatase Total Protein Albumin Quality VTE Prophylaxis VTE prophylaxis: mechanical ordered and pharmacologic ordered
[2024-05-04] MEDS: APIXABAN 5 MG TABLET PO ×2 (10:07→21:23)
[2024-05-04] MEDS: FAMOTIDINE 20 MG TABLET BY MOUTH (10:07)
[2024-05-04] MEDS: CALCIUM/VITAMIN D 500 MG/5 MCG (200 I.U.) TABLET PO (10:08)
[2024-05-04] MEDS: METOPROLOL SUCCINATE EXT REL 25 MG TABCR PO (10:08)
[2024-05-04] MEDS: POTASSIUM CHLORIDE 20 MEQ PACKET (FOR LIQUID) 40 MEQ PO (10:08)
[2024-05-04 12:05] LABS: Glucose Point of Care 128 mg/dl (65-105)
[2024-05-04 16:43] LABS: Glucose Point of Care 131 mg/dl (65-105)
[2024-05-04] MEDS: PROCHLORPERAZINE EDISYLATE 10 MG/2 ML VIAL IV PUSH (18:43)
[2024-05-04 21:12] LABS: Glucose Point of Care 164 mg/dl (65-105)
[2024-05-04] MEDS: MONTELUKAST SODIUM 10 MG TABLET PO (21:23)
[2024-05-04] MEDS: AZITHROMYCIN 500 MG/NS 250 ML 500 MG/250 ML BAG 250 MG IVPB (21:23)
[2024-05-05] VITALS (9 sets, daily range): BP systolic 108–151; BP diastolic 42–77; PULSE 79–105; RESP 16–18; TEMP 36.8–37.7; O2SAT 94–98
[2024-05-05] MEDS: guaiFENesin/DEXTROMETHORPHAN 10 ML UDC PO ×6 (00:21→20:37)
[2024-05-05] MEDS: SODIUM CHLORIDE 0.9% IV 1,000 ML 100 ML IV CONT ×2 (06:28→16:44)
[2024-05-05 06:50] LABS: Basophils Percent Auto 0.2 % (0.2-1.2); Eosinophils Percent Auto 0.4 % (0-4.4); Hematocrit 32.5 % (42.0-52.0); Hemoglobin 10.6 g/dL (14.0-18.0); Immature Granulocyte Absolute 0.09 K/mm3 (0.00-0.031); Lymphocytes Percent Auto 15.6 % (18.3-44.2); Mean Corpuscular HGB Conc 32.6 g/dl (32-36); Mean Corpuscular Hemoglobin 30.5 pg (26-34); Mean Corpuscular Volume 93.7 fl (80-100); Mean Platelet Volume 9.8 fl (7.4-10.4); Monocytes Absolute Auto 0.4 K/mm3 (0.1-0.6); Monocytes Percent Auto 9.3 % (2.6-8.5); Neutrophils Absolute Auto 3.3 K/mm3 (1.3-6.7); Neutrophils Percent Auto 72.5 % (45.5-73.1); Platelet Count Result 180 k/mm3 (150-375); Red Blood Count 3.47 M/mm3 (4.6-6.20); Red Cell Distribution Width 12.6 % (11.5-14.5); White Blood Count 4.5 K/mm3 (4.5-10.0)
[2024-05-05 07:02] LABS: Alanine Aminotransferase 24 U/L (6-50); Albumin Level 2.9 g/dL (3.5-5.1); Alkaline Phosphatase 53 U/L (38-126); Anion Gap 7 mmol/L (4-12); Aspartate Amino Transferase 31 U/L (17-59); Bilirubin,Total 0.7 mg/dL (0.2-1.3); Blood Urea Nitrogen 15 mg/dL (9-20); Calcium 7.7 mg/dL (8.4-10.2); Carbon Dioxide 26 mmol/L (22-30); Chloride 103 mmol/L (98-107); Estimated CRCL calculation 51 ml/min; Estimated Glomerular Filt Rate > 60; Glucose 116 mg/dL (65-110); Potassium 3.1 mmol/L (3.4-5.0); Sodium 136 mmol/L (137-145)
[2024-05-05 08:03] LABS: Glucose Point of Care 130 mg/dl (65-105)
[2024-05-05] MEDS: APIXABAN 5 MG TABLET PO ×2 (08:18→20:38)
[2024-05-05] MEDS: METOPROLOL SUCCINATE EXT REL 25 MG TABCR PO (08:18)
[2024-05-05] MEDS: FAMOTIDINE 20 MG TABLET BY MOUTH (08:18)
[2024-05-05] MEDS: CALCIUM/VITAMIN D 500 MG/5 MCG (200 I.U.) TABLET PO (08:18)
--- NOTE | 2024-05-05 09:09 | P.PNIM_ITS ---
Progress Note: A&P Assessment and Plan (1) Influenza A: Code(s): J10.1 - Influenza due to other identified influenza virus with other respiratory manifestations Status: Acute Assessment and Plan: Robitussin scheduled Tylenol as needed (2) Pneumonia: Code(s): J18.9 - Pneumonia, unspecified organism Status: Acute Assessment and Plan: Azithromycin and Rocephin Blood cultures no growth today Transitioning to oral antibiotics (3) Physical deconditioning: Code(s): R53.81 - Other malaise Status: Acute Assessment and Plan: With fall PT OT evaluate and treat Patient will need to discharge to skilled therapy (4) Acute renal insufficiency: Code(s): N28.9 - Disorder of kidney and ureter, unspecified Status: Acute Assessment and Plan: IV hydration Daily BMP Avoid nephrotoxic medications dACE-i; substitute with Amlodipine- monitor BP (5) Diabetes: Code(s): E11.9 - Type 2 diabetes mellitus without complications Status: Acute Assessment and Plan: Basal+correctional insulin regimen. Hold home metformin. Hypoglycemic protocol Plan Chronic and stable conditions 1. Seasonal allergies. 2. NIDDM2. 3. GERD- continue famotidine 4. Hx of A-fib. Miscellaneous care 1. Code status. Full 2. Nutrition. Heart healthy 3. VTE prophylaxis. SCDs; Apixaban Time Spent With Patient Time with patient: Greater than 35 minutes Subjective Date/time seen: 05/05/24 09:09 Interval history: Gareth Arevalo is a 73 yo M with a mHx significant for A-fib, NIDDM2, Hypertension, Seasonal allergies admitted for eval and mngmnt of influenza A infection with acute renal insufficiency, likely 2/2 pre-renal azotemia compounded by exposure to JORDAN-inhibitors. Patient states he is feeling much better from yesterday is able to cough up sputum, will transition to oral antibiotics, he is likely medically ready for discharge however is recommending that he goes to skilled therapy Review of Systems Review of Systems: All systems reviewed & are unremarkable except as noted in HPI and below Exam Narrative: General: well appearing, appears stated age. HEENT: normocephalic, atraumatic. Mucous membranes moist. EOMI, PERRLA, bilateral sclera anicteric, no conjunctival injection. Neck supple without JVD, lymphadenopathy, or bruit. Respiratory: clear to ascultation bilaterally. No rales/rhonic/wheezes. Cardiovascular: Regular rate and rhythm, normal S1-S2 upon ascultation. No murmurs, rubs, or clicks. PMI is nondisplaced, capillary refill less than 3 second. Abdomen: Soft, round, no pulsatile masses, nondistended and nontender. No rebound, no guarding. No CVA tenderness, no hepatosplenomegaly. Bowel sounds present to all four quadrants. No high pitch or tinkling sounds, resonant to percussion. Extremities: No cyanosis, clubbing, or edema present. Pulses are palpable 2/2. Active ROM to all four extremities. Neuro: Alert and orientated x 4. PERRLA. Cranial nerves 2-12 intact without focal deficit. Skin: Warm, dry, and intact, without rash, erythema, or lesion. Psych: pleasant, cooperative, normal speech, normal affect, no hallucinations, no dysarthia Objective Data Vital Signs Vital Signs: Vital Signs - 24 hr 05/04/24 12:00 05/04/24 14:00 05/04/24 16:00 Temperature 98.6 F Pulse Rate 91 85 88 Respiratory Rate 16 Blood Pressure 113/39 L Pulse Oximetry 99 Oxygen Delivery 05/04/24 20:00 05/04/24 20:00 05/04/24 20:00 Temperature 98.5 F Pulse Rate 93 95 Respiratory Rate 18 Blood Pressure 107/41 L Pulse Oximetry 93 Oxygen Delivery Room Air 05/05/24 00:00 05/05/24 04:00 05/05/24 04:00 Temperature 98.6 F Pulse Rate 82 90 89 Respiratory Rate 18 Blood Pressure 110/42 L Pulse Oximetry 94 Oxygen Delivery 05/05/24 08:00 05/05/24 08:18 Temperature Pulse Rate 90 90 Respiratory Rate Blood Pressure Pulse Oximetry Oxygen Delivery Intake/Output Intake/Output: Intake & Output 05/02/24 05/03/24 05/04/24 05/05/24 23:59 23:59 23:59 23:59 Intake Total 1050 4110 5370 250 Output Total 300 Balance 750 4110 5370 250 Meds/Results Medications: Active Medications Generic Name Dose Route Start Last Admin Trade Name Freq PRN Reason Stop Dose Admin Acetaminophen 650 mg 05/02/24 20:49 05/03/24 14:26 Acetaminophen 325 Mg Tablet PO 650 mg Q4H PRN Administration Mild Pain (1-3) or Fever Albuterol/Ipratropium 3 ml 05/02/24 20:49 Ipratropium 0.5 Mg/Albuterol Sulfate 2.5 Mg Ampul.Neb 3 Ml INHALATION Q4HRT PRN shortness of breath/Wheezing Apixaban 5 mg 05/03/24 09:00 05/05/24 08:18 Apixaban 5 Mg Tablet PO 5 mg Q12HR AGUSTINA Administration Calcium Carbonate 500 mg 05/04/24 09:30 05/05/24 08:18 Calcium/Vitamin D 500 Mg/5 Mcg (200 I.U.) Tablet PO 500 mg DAILY@0800 AGUSTINA Administration Dextrose 12.5 gm 05/03/24 08:52 Dextrose 50% 25 Gm/50 Ml Syringe IV PUSH PRN PRN Hypoglycemia Protocol Famotidine 20 mg 05/03/24 09:05 05/05/24 08:18 Famotidine 20 Mg Tablet BY MOUTH 20 mg QAM AGUSTINA Administration Glucagon 1 mg 05/03/24 08:52 Glucagon For Inj 1 Mg Vial IM PRN PRN Hypoglycemia Protocol Glucose 15 gm 05/03/24 08:52 Glucose Oral Gel 15 Gm Of Glucse In 37.5 Gm Tube PO PRN PRN Hypoglycemia Protocol Guaifenesin/Dextromethorphan 10 ml 05/04/24 15:30 05/05/24 08:18 Guaifenesin/Dextromethorphan 10 Ml Udc PO 10 ml Q4HR AGUSTINA Administration Azithromycin 500 mg in 250 mls @ 250 mls/hr 05/02/24 21:00 05/04/24 21:23 Zithromax IVPB 250 mls/hr Q24H AGUSTINA Administration Sodium Chloride 1,000 mls @ 100 mls/hr 05/02/24 20:50 05/05/24 08:16 Normal Saline Iv IV CONT Not Given .Q10H AGUSTINA Ceftriaxone Sodium 1 gm in 50 mls @ 100 mls/hr 05/03/24 21:00 05/04/24 23:00 Rocephin 1 Gm/Ns 50 Ml IVPB 05/09/24 20:59 100 mls/hr Q24H AGUSTINA Administration Dextrose 1,000 mls @ 100 mls/hr 05/03/24 08:52 Dextrose 5% 1,000 Ml IVPB PRN PRN Hypoglycemia Protocol Insulin Aspart 2 - 5 units 05/03/24 09:05 05/05/24 08:16 Insulin Aspart (*Bkc) 100 Units/Ml SUB-Q Not Given TIDWM AGUSTINA Protocol Melatonin 5 mg 05/02/24 20:49 Melatonin 5 Mg Tablet PO HS PRN Insomnia Metoprolol Succinate 25 mg 05/03/24 09:00 05/05/24 08:18 Metoprolol Succinate Ext Rel 25 Mg Tabcr PO 25 mg DAILY AGUSTINA Administration Montelukast Sodium 10 mg 05/03/24 21:00 05/04/24 21:23 Montelukast Sodium 10 Mg Tablet PO 10 mg QHS AGUSTINA Administration Polyethylene Glycol 17 gm 05/02/24 20:49 Polyethylene Glycol 3350 17 Gm Powd.Pack PO QAM PRN Constipation Prochlorperazine Edisylate 10 mg 05/02/24 20:49 05/04/24 18:43 Prochlorperazine Edisylate 10 Mg/2 Ml Vial IV PUSH 10 mg Q6H PRN Administration Nausea And Vomiting Radiology Results: ITS Impressions Chest X-Ray 05/04/24 15:42 IMPRESSION: Right lower lobe infiltrate, as detailed above. Labs Labs: Laboratory Results - last 24 hr 05/04/24 05/04/24 05/04/24 11:24 16:41 20:19 WBC RBC Hgb Hct MCV MCH MCHC RDW Plt Count MPV Immature Gran % (Auto) Neut % (Auto) Lymph % (Auto) [place] % (Auto) Eos % (Auto) Baso % (Auto) Lymph # (Auto) [place] # (Auto) Eos # (Auto) Baso # (Auto) Abs Immat Gran (auto) Absolute Neuts (auto) Absolute Nucleated RBC Nucleated RBC % Sodium Potassium Chloride Carbon Dioxide Anion Gap BUN Creatinine Estim Creat Clear Calc Estimated GFR Glucose POC Capillary Glucose 128 H 131 H 164 H Calcium Total Bilirubin AST ALT Alkaline Phosphatase Total Protein Albumin 05/05/24 05/05/24 06:39 07:38 WBC 4.5 RBC 3.47 L Hgb 10.6 L Hct 32.5 L MCV 93.7 MCH 30.5 MCHC 32.6 RDW 12.6 Plt Count 180 MPV 9.8 Immature Gran % (Auto) 2.0 H Neut % (Auto) 72.5 Lymph % (Auto) 15.6 L [place] % (Auto) 9.3 H Eos % (Auto) 0.4 Baso % (Auto) 0.2 Lymph # (Auto) 0.70 L [place] # (Auto) 0.4 Eos # (Auto) 0.0 Baso # (Auto) 0.0 Abs Immat Gran (auto) 0.09 H Absolute Neuts (auto) 3.3 Absolute Nucleated RBC 0.000 Nucleated RBC % 0.0 Sodium 136 L Potassium 3.1 L Chloride 103 Carbon Dioxide 26 Anion Gap 7 BUN 15 D Creatinine 1.05 Estim Creat Clear Calc 51 Estimated GFR > 60 Glucose 116 H POC Capillary Glucose 130 H Calcium 7.7 L Total Bilirubin 0.7 AST 31 ALT 24 Alkaline Phosphatase 53 Total Protein 6.0 L Albumin 2.9 L Quality VTE Prophylaxis VTE prophylaxis: mechanical ordered and pharmacologic ordered
[2024-05-05 12:02] LABS: Glucose Point of Care 157 mg/dl (65-105)
[2024-05-05] MEDS: POTASSIUM CHLORIDE 20 MEQ ER TABLET 40 MEQ PO (12:09)
[2024-05-05 17:07] LABS: Glucose Point of Care 147 mg/dl (65-105)
[2024-05-05] MEDS: AMOXICILLIN/CLAVULANATE K 875-125 MG TAB 1 TABLET PO (20:37)
[2024-05-05] MEDS: AZITHROMYCIN 250 MG TABLET 500 MG PO (20:37)
[2024-05-05] MEDS: MONTELUKAST SODIUM 10 MG TABLET PO (20:38)
[2024-05-05 21:02] LABS: Glucose Point of Care 177 mg/dl (65-105)
[2024-05-06] VITALS (10 sets, daily range): BP systolic 137–151; BP diastolic 65–88; PULSE 80–108; RESP 14–18; TEMP 37.1–37.9; O2SAT 94–96
[2024-05-06] MEDS: guaiFENesin/DEXTROMETHORPHAN 10 ML UDC PO ×6 (02:12→20:01)
[2024-05-06] MEDS: SODIUM CHLORIDE 0.9% IV 1,000 ML 100 ML IV CONT ×2 (02:14→16:48)
[2024-05-06 05:51] LABS: Basophils Percent Auto 0.3 % (0.2-1.2); Eosinophils Percent Auto 0.6 % (0-4.4); Hematocrit 33.2 % (42.0-52.0); Hemoglobin 11.2 g/dL (14.0-18.0); Immature Granulocyte Absolute 0.33 K/mm3 (0.00-0.031); Immature Granulocyte Percent A 5.3 % (0-0.5); Lymphocytes Absolute Auto 0.98 K/mm3 (0.9-3.2); Lymphocytes Percent Auto 15.9 % (18.3-44.2); Mean Corpuscular HGB Conc 33.7 g/dl (32-36); Mean Corpuscular Hemoglobin 31.2 pg (26-34); Mean Corpuscular Volume 92.5 fl (80-100); Mean Platelet Volume 9.8 fl (7.4-10.4); Monocytes Absolute Auto 0.6 K/mm3 (0.1-0.6); Monocytes Percent Auto 10.4 % (2.6-8.5); Neutrophils Absolute Auto 4.2 K/mm3 (1.3-6.7); Neutrophils Percent Auto 67.5 % (45.5-73.1); Platelet Count Result 240 k/mm3 (150-375); Red Blood Count 3.59 M/mm3 (4.6-6.20); Red Cell Distribution Width 12.6 % (11.5-14.5); White Blood Count 6.2 K/mm3 (4.5-10.0)
[2024-05-06 06:04] LABS: Alanine Aminotransferase 25 U/L (6-50); Albumin Level 3.1 g/dL (3.5-5.1); Alkaline Phosphatase 67 U/L (38-126); Anion Gap 10 mmol/L (4-12); Aspartate Amino Transferase 27 U/L (17-59); Bilirubin,Total 0.8 mg/dL (0.2-1.3); Blood Urea Nitrogen 13 mg/dL (9-20); Calcium 8.1 mg/dL (8.4-10.2); Carbon Dioxide 24 mmol/L (22-30); Chloride 102 mmol/L (98-107); Estimated CRCL calculation 58 ml/min; Estimated Glomerular Filt Rate > 60; Glucose 151 mg/dL (65-110); Potassium 3.8 mmol/L (3.4-5.0); Sodium 136 mmol/L (137-145)
[2024-05-06 08:07] LABS: Glucose Point of Care 136 mg/dl (65-105)
[2024-05-06] MEDS: APIXABAN 5 MG TABLET PO ×2 (08:38→20:02)
[2024-05-06] MEDS: CALCIUM/VITAMIN D 500 MG/5 MCG (200 I.U.) TABLET PO (08:38)
[2024-05-06] MEDS: METOPROLOL SUCCINATE EXT REL 25 MG TABCR PO (08:38)
[2024-05-06] MEDS: AMOXICILLIN/CLAVULANATE K 875-125 MG TAB 1 TABLET PO ×2 (08:38→20:02)
[2024-05-06] MEDS: FAMOTIDINE 20 MG TABLET BY MOUTH (08:38)
[2024-05-06 11:37] LABS: Glucose Point of Care 160 mg/dl (65-105)
--- NOTE | 2024-05-06 16:13 | P.PNIM_ITS ---
Progress Note: A&P Assessment and Plan (1) Influenza A: Code(s): J10.1 - Influenza due to other identified influenza virus with other respiratory manifestations Status: Acute Assessment and Plan: Robitussin scheduled Tylenol as needed (2) Pneumonia: Code(s): J18.9 - Pneumonia, unspecified organism Status: Acute Assessment and Plan: Azithromycin and Rocephin Blood cultures no growth today Transitioning to oral antibiotics (3) Physical deconditioning: Code(s): R53.81 - Other malaise Status: Acute Assessment and Plan: With fall PT OT evaluate and treat Patient will need to discharge to skilled therapy (4) Acute renal insufficiency: Code(s): N28.9 - Disorder of kidney and ureter, unspecified Status: Acute Assessment and Plan: IV hydration Daily BMP Avoid nephrotoxic medications dACE-i; substitute with Amlodipine- monitor BP (5) Diabetes: Code(s): E11.9 - Type 2 diabetes mellitus without complications Status: Acute Assessment and Plan: Basal+correctional insulin regimen. Hold home metformin. Hypoglycemic protocol Plan Patient states he is feeling much better from yesterday is able to cough up sputum, will transition to oral antibiotics, he is likely medically ready for discharge however is recommending that he goes to skilled therapy, today patient worked with PT, feels tired and does feel going home, will monitor one more day and discharge tomorrow. Chronic and stable conditions 1. Seasonal allergies. 2. NIDDM2. 3. GERD- continue famotidine 4. Hx of A-fib. Miscellaneous care 1. Code status. Full 2. Nutrition. Heart healthy 3. VTE prophylaxis. SCDs; Apixaban Subjective Date/time seen: 05/06/24 16:13 Interval history: Gareth Arevalo is a 73 yo M with a mHx significant for A-fib, NIDDM2, Hypertension, Seasonal allergies admitted for eval and mngmnt of influenza A infection with acute renal insufficiency, likely 2/2 pre-renal azotemia compounded by exposure to JORDAN-inhibitors. Patient states he is feeling much better from yesterday is able to cough up sputum, will transition to oral antibiotics, he is likely medically ready for discharge however is recommending that he goes to skilled therapy, today patient worked with PT, feels tired and does feel going home, will monitor one more day and discharge tomorrow. Review of Systems Review of Systems: All systems reviewed & are unremarkable except as noted in HPI and below Exam Narrative: Patient is comfortable, NAD HEENT: eyes are clear and none icteric LUNGS: Bilateral fair entry with rhonchi HEART: RR S1S2 ABD: BS+, Soft and nontender Lower extremities: no edema SKIN: nonjaundiced Neuro: grossly intact. Objective Data Vital Signs Vital Signs: Vital Signs - 24 hr 05/05/24 20:00 05/05/24 21:30 05/06/24 00:00 Temperature 37.7 C H Pulse Rate 93 92 99 Respiratory Rate 18 Blood Pressure 151/77 H Pulse Oximetry 95 Oxygen Delivery 05/06/24 04:00 05/06/24 05:41 05/06/24 08:00 Temperature 37.2 C Pulse Rate 96 80 108 H Respiratory Rate 18 Blood Pressure 151/76 H Pulse Oximetry 94 Oxygen Delivery 05/06/24 08:38 05/06/24 08:38 05/06/24 08:38 Temperature Pulse Rate 103 H 103 H Respiratory Rate Blood Pressure 145/88 H Pulse Oximetry 95 Oxygen Delivery Room Air 05/06/24 12:00 05/06/24 14:00 Temperature 37.1 C Pulse Rate 90 102 H Respiratory Rate 14 Blood Pressure 150/77 H Pulse Oximetry 95 Oxygen Delivery Intake/Output Intake/Output: Intake & Output 05/03/24 05/04/24 05/05/24 05/06/24 23:59 23:59 23:59 23:59 Intake Total 4110 5370 2305 1726 Balance 4110 5370 2305 1726 Meds/Results Medications: Active Medications Generic Name Dose Route Start Last Admin Trade Name Freq PRN Reason Stop Dose Admin Acetaminophen 650 mg 05/02/24 20:49 05/03/24 14:26 Acetaminophen 325 Mg Tablet PO 650 mg Q4H PRN Administration Mild Pain (1-3) or Fever Albuterol/Ipratropium 3 ml 05/02/24 20:49 Ipratropium 0.5 Mg/Albuterol Sulfate 2.5 Mg Ampul.Neb 3 Ml INHALATION Q4HRT PRN shortness of breath/Wheezing Amoxicillin/Clavulanate Potassium 1 tablet 05/05/24 21:00 05/06/24 08:38 Amoxicillin/Clavulanate K 875-125 Mg Tab PO 05/08/24 21:01 1 tablet Q12HR AGUSTINA Administration Apixaban 5 mg 05/03/24 09:00 05/06/24 08:38 Apixaban 5 Mg Tablet PO 5 mg Q12HR AGUSTINA Administration Azithromycin 500 mg 05/05/24 21:00 05/05/24 20:37 Azithromycin 250 Mg Tablet PO 05/06/24 21:01 500 mg QHS AGUSTINA Administration Calcium Carbonate 500 mg 05/04/24 09:30 05/06/24 08:38 Calcium/Vitamin D 500 Mg/5 Mcg (200 I.U.) Tablet PO 500 mg DAILY@0800 AGUSTINA Administration Dextrose 12.5 gm 05/03/24 08:52 Dextrose 50% 25 Gm/50 Ml Syringe IV PUSH PRN PRN Hypoglycemia Protocol Famotidine 20 mg 05/03/24 09:05 05/06/24 08:38 Famotidine 20 Mg Tablet BY MOUTH 20 mg QAM AGUSTINA Administration Glucagon 1 mg 05/03/24 08:52 Glucagon For Inj 1 Mg Vial IM PRN PRN Hypoglycemia Protocol Glucose 15 gm 05/03/24 08:52 Glucose Oral Gel 15 Gm Of Glucse In 37.5 Gm Tube PO PRN PRN Hypoglycemia Protocol Guaifenesin/Dextromethorphan 10 ml 05/04/24 15:30 05/06/24 14:00 Guaifenesin/Dextromethorphan 10 Ml Udc PO 10 ml Q4HR AGUSTINA Administration Sodium Chloride 1,000 mls @ 100 mls/hr 05/02/24 20:50 05/06/24 02:14 Normal Saline Iv IV CONT 100 mls/hr .Q10H AGUSTINA Administration Dextrose 1,000 mls @ 100 mls/hr 05/03/24 08:52 Dextrose 5% 1,000 Ml IVPB PRN PRN Hypoglycemia Protocol Insulin Aspart 2 - 5 units 05/03/24 09:05 05/06/24 12:12 Insulin Aspart (*Bkc) 100 Units/Ml SUB-Q Not Given TIDWM [facility] Protocol Melatonin 5 mg 05/02/24 20:49 Melatonin 5 Mg Tablet PO HS PRN Insomnia Metoprolol Succinate 25 mg 05/03/24 09:00 05/06/24 08:38 Metoprolol Succinate Ext Rel 25 Mg Tabcr PO 25 mg DAILY AGUSTINA Administration Montelukast Sodium 10 mg 05/03/24 21:00 05/05/24 20:38 Montelukast Sodium 10 Mg Tablet PO 10 mg QHS AGUSTINA Administration Polyethylene Glycol 17 gm 05/02/24 20:49 Polyethylene Glycol 3350 17 Gm Powd.Pack PO QAM PRN Constipation Prochlorperazine Edisylate 10 mg 05/02/24 20:49 05/04/24 18:43 Prochlorperazine Edisylate 10 Mg/2 Ml Vial IV PUSH 10 mg Q6H PRN Administration Nausea And Vomiting Radiology Results: ITS Impressions Chest X-Ray 05/04/24 15:42 IMPRESSION: Right lower lobe infiltrate, as detailed above. Labs Labs: Laboratory Results - last 24 hr 05/05/24 05/05/24 05/06/24 17:02 20:29 05:34 WBC 6.2 RBC 3.59 L Hgb 11.2 L Hct 33.2 L MCV 92.5 MCH 31.2 MCHC 33.7 RDW 12.6 Plt Count 240 MPV 9.8 Immature Gran % (Auto) 5.3 H Neut % (Auto) 67.5 Lymph % (Auto) 15.9 L [place] % (Auto) 10.4 H Eos % (Auto) 0.6 Baso % (Auto) 0.3 Lymph # (Auto) 0.98 [place] # (Auto) 0.6 Eos # (Auto) 0.0 Baso # (Auto) 0.0 Abs Immat Gran (auto) 0.33 H Absolute Neuts (auto) 4.2 Absolute Nucleated RBC 0.000 Nucleated RBC % 0.0 Sodium 136 L Potassium 3.8 Chloride 102 Carbon Dioxide 24 Anion Gap 10 BUN 13 Creatinine 0.91 Estim Creat Clear Calc 58 Estimated GFR > 60 Glucose 151 H POC Capillary Glucose 147 H 177 H Calcium 8.1 L Total Bilirubin 0.8 AST 27 ALT 25 Alkaline Phosphatase 67 Total Protein 6.0 L Albumin 3.1 L 05/06/24 05/06/24 07:53 11:35 WBC RBC Hgb Hct MCV MCH MCHC RDW Plt Count MPV Immature Gran % (Auto) Neut % (Auto) Lymph % (Auto) [place] % (Auto) Eos % (Auto) Baso % (Auto) Lymph # (Auto) [place] # (Auto) Eos # (Auto) Baso # (Auto) Abs Immat Gran (auto) Absolute Neuts (auto) Absolute Nucleated RBC Nucleated RBC % Sodium Potassium Chloride Carbon Dioxide Anion Gap BUN Creatinine Estim Creat Clear Calc Estimated GFR Glucose POC Capillary Glucose 136 H 160 H Calcium Total Bilirubin AST ALT Alkaline Phosphatase Total Protein Albumin Quality VTE Prophylaxis VTE prophylaxis: mechanical ordered and pharmacologic ordered
[2024-05-06 16:58] LABS: Glucose Point of Care 190 mg/dl (65-105)
[2024-05-06] MEDS: AZITHROMYCIN 250 MG TABLET 500 MG PO (20:01)
[2024-05-06] MEDS: MONTELUKAST SODIUM 10 MG TABLET PO (20:02)
[2024-05-06 20:50] LABS: Glucose Point of Care 181 mg/dl (65-105)
[2024-05-07] VITALS: PULSE 96
[2024-05-07] MEDS: guaiFENesin/DEXTROMETHORPHAN 10 ML UDC PO ×3 (00:44→09:01)
[2024-05-07 04:00] VITALS: PULSE 97
[2024-05-07] MEDS: SODIUM CHLORIDE 0.9% IV 1,000 ML 100 ML IV CONT (05:00)
[2024-05-07 05:34] VITALS: BP 149/56; PULSE 75; RESP 16; TEMP 37.6; O2SAT 95
[2024-05-07 07:17] LABS: Basophils Percent Auto 0.5 % (0.2-1.2); Eosinophils Absolute Auto 0.1 K/mm3 (0-0.3); Eosinophils Percent Auto 0.8 % (0-4.4); Hematocrit 31.5 % (42.0-52.0); Hemoglobin 10.7 g/dL (14.0-18.0); Immature Granulocyte Absolute 0.42 K/mm3 (0.00-0.031); Immature Granulocyte Percent A 6.4 % (0-0.5); Lymphocytes Absolute Auto 0.78 K/mm3 (0.9-3.2); Lymphocytes Percent Auto 11.9 % (18.3-44.2); Mean Corpuscular Hemoglobin 30.8 pg (26-34); Mean Corpuscular Volume 90.8 fl (80-100); Mean Platelet Volume 9.6 fl (7.4-10.4); Monocytes Absolute Auto 0.8 K/mm3 (0.1-0.6); Monocytes Percent Auto 12.3 % (2.6-8.5); Neutrophils Absolute Auto 4.5 K/mm3 (1.3-6.7); Neutrophils Percent Auto 68.1 % (45.5-73.1); Platelet Count Result 302 k/mm3 (150-375); Red Blood Count 3.47 M/mm3 (4.6-6.20); Red Cell Distribution Width 12.5 % (11.5-14.5); White Blood Count 6.6 K/mm3 (4.5-10.0)
[2024-05-07 07:29] LABS: Alanine Aminotransferase 26 U/L (6-50); Albumin Level 2.6 g/dL (3.5-5.1); Alkaline Phosphatase 67 U/L (38-126); Anion Gap 9 mmol/L (4-12); Aspartate Amino Transferase 25 U/L (17-59); Bilirubin,Total 0.8 mg/dL (0.2-1.3); Blood Urea Nitrogen 11 mg/dL (9-20); Calcium 7.9 mg/dL (8.4-10.2); Carbon Dioxide 25 mmol/L (22-30); Chloride 101 mmol/L (98-107); Estimated CRCL calculation 65 ml/min; Estimated Glomerular Filt Rate > 60; Glucose 150 mg/dL (65-110); Potassium 3.3 mmol/L (3.4-5.0); Sodium 135 mmol/L (137-145)
[2024-05-07 07:49] LABS: Glucose Point of Care 146 mg/dl (65-105)
[2024-05-07 08:00] VITALS: PULSE 103
[2024-05-07] MEDS: APIXABAN 5 MG TABLET PO (08:52)
[2024-05-07] MEDS: FAMOTIDINE 20 MG TABLET BY MOUTH (08:52)
[2024-05-07] MEDS: AMOXICILLIN/CLAVULANATE K 875-125 MG TAB 1 TABLET PO (08:52)
[2024-05-07 08:53] VITALS: PULSE 100
[2024-05-07] MEDS: METOPROLOL SUCCINATE EXT REL 25 MG TABCR PO (08:53)
[2024-05-07] MEDS: CALCIUM/VITAMIN D 500 MG/5 MCG (200 I.U.) TABLET PO (08:56)
[2024-05-07] MEDS: POTASSIUM CHLORIDE 20 MEQ PACKET (FOR LIQUID) 40 MEQ PO (09:02)
--- NOTE | 2024-05-07 11:24 | PM.DS ---
DS: Summary Time Spent with Patient Time attestation: Total time spent providing and/or coordinating discharge services: DS: Data Data Completed and Pending Labs on day of discharge: Labs from last 24 hours 05/07/24 05/07/24 05/06/24 07:33 06:54 20:34 WBC 6.6 RBC 3.47 L Hgb 10.7 L Hct 31.5 L MCV 90.8 MCH 30.8 MCHC 34.0 RDW 12.5 Plt Count 302 MPV 9.6 Immature Gran % (Auto) 6.4 H Neut % (Auto) 68.1 Lymph % (Auto) 11.9 L [place] % (Auto) 12.3 H Eos % (Auto) 0.8 Baso % (Auto) 0.5 Lymph # (Auto) 0.78 L [place] # (Auto) 0.8 H Eos # (Auto) 0.1 Baso # (Auto) 0.0 Abs Immat Gran (auto) 0.42 H Absolute Neuts (auto) 4.5 Absolute Nucleated RBC 0.000 Nucleated RBC % 0.0 Sodium 135 L Potassium 3.3 L Chloride 101 Carbon Dioxide 25 Anion Gap 9 BUN 11 Creatinine 0.81 Estim Creat Clear Calc 65 Estimated GFR > 60 Glucose 150 H POC Capillary Glucose 146 H 181 H Calcium 7.9 L Total Bilirubin 0.8 AST 25 ALT 26 Alkaline Phosphatase 67 Total Protein 6.0 L Albumin 2.6 L 05/06/24 05/06/24 16:50 11:35 WBC RBC Hgb Hct MCV MCH MCHC RDW Plt Count MPV Immature Gran % (Auto) Neut % (Auto) Lymph % (Auto) [place] % (Auto) Eos % (Auto) Baso % (Auto) Lymph # (Auto) [place] # (Auto) Eos # (Auto) Baso # (Auto) Abs Immat Gran (auto) Absolute Neuts (auto) Absolute Nucleated RBC Nucleated RBC % Sodium Potassium Chloride Carbon Dioxide Anion Gap BUN Creatinine Estim Creat Clear Calc Estimated GFR Glucose POC Capillary Glucose 190 H 160 H Calcium Total Bilirubin AST ALT Alkaline Phosphatase Total Protein Albumin Preliminary micro results at discharge 05/02/24 20:20 Blood Culture - Preliminary Blood 05/02/24 20:37 Blood Culture - Preliminary Blood Discharge Plan Discharge Attending physician on discharge: Favio Mirza Discharging Clinician: Charis Askew Activity: as tolerated Diet: heart healthy Discharge Instructions: patient to follow up with primary care provider as soon as possible, patient is instructed if any symptoms worsen to go to nearest ER. Patient Instructions: Apixaban (By mouth) Patient Language: Ecuadorean Follow-up/Referrals: Aquiles Beltran APRN [Primary Care Provider] - Discharge Medications: New melatonin 5 mg Tablet 5 mg PO HS PRN (Reason: Insomnia) Qty: 30 0RF dextromethorphan-guaifenesin 10-100 mg/5 mL Syrup 10 ml PO Q4HR Qty: 125 0RF polyethylene glycol 3350 [Miralax] 17 gram Powder In Packet 17 g PO QAM PRN (Reason: Constipation) Qty: 30 0RF calcium carbonate-vitamin D3 [Oyster Shell Calcium-Vit D3] 500 mg-5 mcg (200 unit) Tablet 1 tablet PO DAILY@0800 Qty: 30 0RF Continued multivitamin [One-A-Day Essential] Tablet 1 tablet PO DAILY lisinopril 5 mg tablet See Rx Instructions .ROUTE .COMPLEX Qty: 90 1RF Dose Instruction: TAKE 1 TABLET EVERY DAY Rx Instructions: TAKE 1 TABLET EVERY DAY diphenhydramine HCl [Allergy Relief(diphenhydramin)] 25 mg capsule 25 mg PO QHS PRN erythromycin 5 mg/gram (0.5 %) ointment 0.5 inch RIGHT EYE QID Qty: 3.5 0RF Artificial Tears (cmc) 1 % drops 1 drp EACH EYE 4-6XD PRN (Reason: dry eye(s)) Qty: 15 0RF (DME) lancets [OneTouch Delica Plus Lancet] 30 gauge misc Qty: 1 5RF Rx Instructions: May substitute to in-stock and/or covered by insurance lancets. Use As Directed (DME) blood-glucose meter [Accu-Chek Mayuri Plus Meter] Misc See Rx Instructions .Route Qty: 1 0RF Rx Instructions: As directed (DME) Accu-Chek Mayuri Plus test strp Strip See Rx Instructions .Route Qty: 100 3RF Rx Instructions: CHECK BLOOD SUGARS ONCE DAILY fluticasone propionate 50 mcg/actuation spray,suspension 2 spray intranasal DAILY Qty: 48 3RF metformin 500 mg tablet 500 mg PO BIDWMEAL Qty: 180 3RF metoprolol succinate 25 mg tablet extended release 24 hr 25 mg PO DAILY Qty: 90 3RF Eliquis 5 mg tablet 5 mg PO Q12HR Qty: 180 1RF montelukast 10 mg tablet 10 mg PO QHS Qty: 90 3RF famotidine 20 mg tablet See Rx Instructions .ROUTE .COMPLEX Qty: 90 1RF Dose Instruction: TAKE 1 TABLET BY MOUTH EVERY DAY Rx Instructions: TAKE 1 TABLET BY MOUTH EVERY DAY Date of admission: 05/04/24 16:08 Primary Care Provider: Aquiles Beltran Admitting Provider: Favio Mirza Attending physician on admission: Favio Mirza Condition: Improved
[2024-05-07 11:26] LABS: Glucose Point of Care 172 mg/dl (65-105)
== END 2024-05-07 12:10 | disposition home or self-care (01) | DRG 194 ==
LOC: ANHED 19:35 → ANH3MEDSUR 05-03 07:58
PROVIDERS: Emergency Medicine; Nurse Practitioner; Admitting Provider Internal Medicine; Emergency Provider Emergency Medicine; PCP Nurse Practitioner; Visit Provider Family Medicine
DX: J10.08 Influenza due to other identified influenza virus with other specified pneumonia (principal); I48.20 Chronic atrial fibrillation, unspecified; N17.9 Acute kidney failure, unspecified; I10 Essential (primary) hypertension; K21.9 Gastro-esophageal reflux disease without esophagitis; E11.9 Type 2 diabetes mellitus without complications; E78.5 Hyperlipidemia, unspecified; Z20.822 Contact with and (suspected) exposure to COVID-19; Z85.528 Personal history of other malignant neoplasm of kidney; Z87.891 Personal history of nicotine dependence; Z79.01 Long term (current) use of anticoagulants
CPT/HCPCS: 36415; 71045; 71046; 80053; 81001; 82948; 83605; 84484; 85025; 85610; 85730; 87040; 87637; 93005; 96365; 97110; 97116; 97161; 97165; 99285; A9270; G0378; J0456; J0696; J0780; J1815; J7030

== ENCOUNTER 2024-06-03 13:21 | Outpatient (CLI) | payer MEDICARE, SELFPAY ==
--- NOTE | ~2024-06-03 | XR_ITS ---
XR chest 2V 06/03/2024 13:37 Indication: Cough Procedure: 2 view chest Comparison: Comparison to multiple prior studies sequentially, with oldest reviewed study dated 05/2022. Findings: Patchy bilateral airspace disease, consistent with pneumonia. Heart size normal. No signifi cant effusion or pneumothorax. Impression: 1: Patchy bilateral airspace disease, compatible with pneumonia. Reviewed, dictated and finalized at location A. Impression: 1: Patchy bilateral airspace disease, compatible with pneumonia.
--- OUTSIDE RECORDS SUMMARY | 2024-06-03 14:40 | XMS_ITS | Clinical Summary ---
Author Organization [facility] Address [address] [address] Phone Care Team Providers Care Rehabilitation Technician Name Role Phone Unavailable Primary Care [...]
--- OUTSIDE RECORDS SUMMARY | 2024-06-03 14:40 | XMS_ITS | Referral Summary ---
Author Organization [facility] [address] Address [address] [place] [address] Care Team Providers Care Principal Automation Engineer Name Role Phone Donny Greer MD Primary Care Provider [phone]- [phone] Allergies Active Allergy Reactions Criticality Noted Date [...] 08/10/2022 Chronic anticoagulation 08/10/2022 Paroxysmal atrial fibrillation 05/02/2022 Social History Tobacco Use Types Packs/Day Years Used Date Smoking Tobacco: Former Cigarettes 0.3 4 1 976 - 1980 Smokeless Tobacco: Never Tobacco Cessation:Counseling Given: Not Answered Personal Safety Answer Date Recorded Getting School Help Needed Not on file 02/15 Sex and Gender Information Value Date Recorded Sex Assigned at Not on file 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 Care Teams Principal Automation Engineer Relationship Specialty Start Date End Date Donny Greer MD [address] [facility] [address] [place] [address] PCP - General Internal Medicine 05/28/18
--- OUTSIDE RECORDS SUMMARY | 2024-06-03 14:40 | XMS_ITS | Clinical Summary ---
Author Organization [facility] [address] [facility] [address] [facility] [address] [place] [address] Care Team Providers Care Hand Drawer In Name Role Phone Donny Greer MD Primary Care Provider [phone]- [phone] Allergies Active Allergy Reactions Criticality Noted Date [...] Chronic anticoagulation 08/10/2022 Paroxysmal atrial fibrillation 05/02/2022 Surgical History Surgery Date Site/Laterality Comments CATARACT EXTRACTION Medical History Medical History Date Comments Hypertension Atrial fibrillation (HCC) Diabetes mellitus (HCC) History of kidney [...] on file 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
== END 2024-06-03 13:22 | disposition home or self-care (01) ==
PROVIDERS: PCP Nurse Practitioner; Visit Provider Nurse Practitioner
DX: R05.9 Cough, unspecified (principal); R91.8 Other nonspecific abnormal finding of lung field
CPT/HCPCS: 71046

== ENCOUNTER 2024-10-05 01:33 | Day surgery (SDC) | payer MEDICARE, SELFPAY ==
[2024-09-17 14:21] VITALS: BMI 25.8
--- NOTE | 2024-09-23 15:51 | PC.NURSE ---
non emergency services ambulance driver called regarding seeing patient and sister on day of procedure. They want information for help at home.
--- NOTE | 2024-09-23 15:53 | PC.NURSE ---
Spoke with _patient_ regarding medication _ELIQUIS. PATIENT_verbalizes understanding that the last dose is to be taken on _10/01/2024_ and the Endoscopist will instruct them when to restart after the procedure.
--- OUTSIDE RECORDS SUMMARY | 2024-10-05 01:36 | XMS_ITS | Clinical Summary ---
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
--- OUTSIDE RECORDS SUMMARY | 2024-10-05 01:36 | XMS_ITS | Clinical Summary ---
Author Organization [facility] Address [address] [address] Phone Care Team Providers Care Hvac Operations Technician Name Role Phone Unavailable Primary Care [...] Virus (HCV) Screening 1950 TdaP Immunization 1950 Cologuard 1994 Colonoscopy 1994 Colorectal Cancer Screening 1994 Immunochemical Fecal Occult Blood 1994 Pneumococcal Immunization (5 0+ years) (1 of 1 - PCV) 12/17/1999 Zoster Immunization (1 of 2) 12/17/1999 SARS-COV-2 Immunization ( - 2023- season) 2023 Influenza Immunization (#1) 2024 Respiratory Syncytial Virus (RSV) Immunization (Adult) (1 - 1-dose 75+ series) 2024 Hepatitis B Immunization Aged Out No longer eligible based on patient's age to complete this topic Human Papillomavirus (HPV) Immunization Aged Out No longer eligible b ased on patient's age to complete this topic Meningococcal Immunization (ACWY) Aged Out No longer eligible based on patient's age to complete this topic Rotavirus Immunization Aged Out No lo nger eligible based on patient's age to complete this topic Insurance MEDICARE [facility]
--- OUTSIDE RECORDS SUMMARY | 2024-10-05 01:36 | XMS_ITS | Referral Summary ---
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
--- NOTE | 2024-10-05 11:47 | P.PNAN_ITS ---
Anes - Initial Pre Proc Eval Procedure: Operation Date: 10/05/24 13:00 Proposed Procedures p Colonoscopy - Vel Coto MD Date/Time: 10/05/24 11:47 Surgeon: Vel Coto MD Pre Op Diagnosis: Other fecal abnormalities Patient Data Age: 73 Gender: M Height: 1.68 m Weight: 72.6 kg Allergies Allergy/AdvReac Type Severity Reaction Status Date / Time Sulfa (Sulfonamide Allergy Unknown Unknown Verified 10/05/24 12:00 Antibiotics) terazosin Allergy Unknown Verified 10/05/24 12:00 Home Medications ?Medication ?Instructions ?Recorded ?Confirmed ?Type multivitamin (One-A-Day Essential 1 tablet PO DAILY 02/15/20 09/22/24 History tablet) lancets 30 gauge (eTruckBiz.comTouch Delica #1 pkg 05/29/22 09/22/24 Rx Plus Lancet) diphenhydramine HCl 25 mg capsule 25 mg PO QHS PRN allergy symptoms 04/02/23 10/05/24 History (Allergy Relief (diphenhydramine)) montelukast 10 mg tablet 10 mg PO QHS #90 tabs 04/14/24 10/05/24 Rx carboxymethylcellulose sodium 1 % 1 drp EACH EYE 4-6XD PRN dry 04/16/24 09/22/24 Rx eye drops (Artificial Tears eye(s) #15 mL (carboxymethylcellulose)) lisinopril 5 mg tablet See Rx Instructions .Route 04/28/24 10/05/24 Rx .COMPLEX #90 tabs famotidine 20 mg tablet See Rx Instructions .Route 04/30/24 10/05/24 Rx .COMPLEX #90 tabs calcium 500 mg (as 1 tablet PO DAILY@0800 #30 tabs 05/07/24 10/05/24 Rx carbonate)-vitamin D3 5 mcg (200 unit) tablet (Oyster Shell Calcium-Vitamin D3) dextromethorphan-guaifenesin 10 10 ml PO Q4HR #125 mL 05/07/24 09/22/24 Rx mg-100 mg/5 mL oral syrup melatonin 5 mg tablet 5 mg PO HS PRN Insomnia #30 tabs 05/07/24 09/22/24 Rx polyethylene glycol 3350 17 gram 17 g PO QAM PRN Constipation #30 ea 05/07/24 09/22/24 Rx oral powder packet (Miralax) albuterol sulfate 90 mcg/actuation 2 puff inhalation Q4H PRN 06/25/24 10/05/24 Rx aerosol inhaler (Ventolin HFA) shortness of breath or wheezing #8.5 grams blood-glucose meter #1 ea 07/02/24 09/22/24 Rx blood sugar diagnostic (Accu-Chek #100 ea 07/06/24 09/22/24 Rx Guide test strips) blood sugar diagnostic (Accu-Chek #100 ea 07/22/24 09/22/24 Rx Guide test strips) metoprolol succinate 25 mg 25 mg PO DAILY #90 tabs 07/31/24 10/05/24 Rx tablet,extended release 24 hr metformin 500 mg tablet See Rx Instructions .Route 08/03/24 10/05/24 Rx .COMPLEX #180 tabs sertraline 50 mg tablet 50 mg PO DAILY #30 tabs 08/31/24 10/05/24 Rx acetaminophen 500 mg capsule 500 mg PO Q6H PRN pain 09/17/24 10/05/24 History apixaban 5 mg tablet (Eliquis) 5 mg PO BID 09/17/24 10/05/24 History cetirizine 10 mg tablet (All Day 10 mg PO DAILY 09/17/24 10/05/24 History Allergy (cetirizine)) fluticasone propionate 50 2 spray intranasal Q12H 09/17/24 09/22/24 History mcg/actuation nasal spray,suspension Patient hx anesthesia problems: none Family hx anesthesia problems: none Results Review: All pre-operative results and documents have been reviewed as part of the pre- operative evaluation. [facility] Past Medical History Medical History (Updated 10/05/24 @ 08:06 by Edmond Craig DO) Anxiety Diabetes type 2, controlled Atrial fibrillation BMI 25.0-25.9,adult Cough Renal cell carcinoma Status post ablation of right kidney mass. Gastroesophageal reflux disease Hyperlipidemia Essential (primary) hypertension Hypertension Surgical History Surgical History History of hernia repair History of cholecystectomy Family History Family History Father No problems noted. Mother Family history of congenital heart disease Sibling No problems noted. Grandparent Diabetes mellitus Family history of congenital heart disease Sibling Family history of arthritis Grandparent No problems noted. Other Family history of malignant neoplasm Social History Social History Social History: Surrogate medical decision maker: Pt is a recent . Code status: Full code. Smoking packs per day: 0.25 Smoking cigarettes per day: 5.0 Years smoked: 1 Smoking pack-years: 0.25 Smoking status: Former smoker Second hand tobacco smoke exposure: Yes Smoking end date: 03/04/72 Alcohol intake: former Substance use: former Substance use type: marijuana Do You Feel Safe in your Home?: Yes Lack of Transportation: No Lack of Food: Never True Current Housing: I Have Housing Concerned About Future Housing: No Difficulty Paying Gas/Electric Bills: No Difficulty Paying for Meds: No Currently Unemployed: No Education: High School Diploma/GED Difficulty w/ Childcare or Family Care: No Living arrangements: with family Additional living arrangements comments: Pt is a recent . Sister and JEFF live with him. Occupation/Education: retired Additional occupation/education comments: [employer] Gender identity (if verbalized by the patient): Male Spiritual care concerns: No Anes - Eval Final PreProcedure Day of Procedure 10/05/24 11:47 Patient weight: overweight Heart: regular rate and rhythm Lungs: clear to auscultation Airway: Mallampati scale class II and special considerations poor dentition Neurological: alert and oriented Last oral intake: >/= 8 hours ASA classification: III Emergent: no Anesthetic plan: proceed Anesthesia type and monitoring: general GIVS and standard monitoring Results Review: All pre-operative results and documents have been reviewed as part of the pre- operative evaluation. Informed Consent: The patient's anesthetic plan and its attendant risks and benefits were discussed with the patient/family/POA. Questions were solicited and answers provided to the satisfaction of the patient/family/POA.
[2024-10-05 12:03] VITALS: BP 137/57; PULSE 67; RESP 17; TEMP 36.2; O2SAT 100; BMI 25.2
[2024-10-05] MEDS: LACTATED RINGERS 1,000 ML 150 ML IV CONT (12:18)
--- NOTE | 2024-10-05 12:23 | PM.IMHP ---
H&P: HPI History of Present Illness Date/Time: 10/05/24 12:23 Chief Complaint: Screening colonoscopy Narrative: This is the patient's first colonoscopy. There are no GI symptoms and there is no family history of colorectal cancer. Review of Systems Review of Systems: All systems reviewed & are unremarkable except as noted in HPI and below PMFSH Past Medical History Medical History (Updated 10/05/24 @ 08:06 by Edmond Craig DO) Anxiety Diabetes type 2, controlled Atrial fibrillation BMI 25.0-25.9,adult Cough Renal cell carcinoma Status post ablation of right kidney mass. Gastroesophageal reflux disease Hyperlipidemia Essential (primary) hypertension Hypertension Surgical History Surgical History History of hernia repair History of cholecystectomy Family History Family History Father No problems noted. Mother Family history of congenital heart disease Sibling No problems noted. Grandparent Diabetes mellitus Family history of congenital heart disease Sibling Family history of arthritis Grandparent No problems noted. Other Family history of malignant neoplasm Social History Social History Social History: Surrogate medical decision maker: Pt is a recent . Code status: Full code. Smoking packs per day: 0.25 Smoking cigarettes per day: 5.0 Years smoked: 1 Smoking pack-years: 0.25 Smoking status: Former smoker Second hand tobacco smoke exposure: Yes Smoking end date: 03/04/72 Alcohol intake: former Substance use: former Substance use type: marijuana Do You Feel Safe in your Home?: Yes Lack of Transportation: No Lack of Food: Never True Current Housing: I Have Housing Concerned About Future Housing: No Difficulty Paying Gas/Electric Bills: No Difficulty Paying for Meds: No Currently Unemployed: No Education: High School Diploma/GED Difficulty w/ Childcare or Family Care: No Living arrangements: with family Additional living arrangements comments: Pt is a recent . Sister and JEFF live with him. Occupation/Education: retired Additional occupation/education comments: [employer] Gender identity (if verbalized by the patient): Male Spiritual care concerns: No Meds Home Medications and Allergies Home Medications ?Medication ?Instructions ?Recorded ?Confirmed ?Type multivitamin (One-A-Day Essential 1 tablet PO DAILY 02/15/20 09/22/24 History tablet) lancets 30 gauge (DoroteoTouch Delaminata #1 pkg 05/29/22 09/22/24 Rx Plus Lancet) diphenhydramine HCl 25 mg capsule 25 mg PO QHS PRN allergy symptoms 04/02/23 10/05/24 History (Allergy Relief (diphenhydramine)) montelukast 10 mg tablet 10 mg PO QHS #90 tabs 04/14/24 10/05/24 Rx carboxymethylcellulose sodium 1 % 1 drp EACH EYE 4-6XD PRN dry 04/16/24 09/22/24 Rx eye drops (Artificial Tears eye(s) #15 mL (carboxymethylcellulose)) lisinopril 5 mg tablet See Rx Instructions .Route 04/28/24 10/05/24 Rx .COMPLEX #90 tabs famotidine 20 mg tablet See Rx Instructions .Route 04/30/24 10/05/24 Rx .COMPLEX #90 tabs calcium 500 mg (as 1 tablet PO DAILY@0800 #30 tabs 05/07/24 10/05/24 Rx carbonate)-vitamin D3 5 mcg (200 unit) tablet (Oyster Shell Calcium-Vitamin D3) dextromethorphan-guaifenesin 10 10 ml PO Q4HR #125 mL 05/07/24 09/22/24 Rx mg-100 mg/5 mL oral syrup melatonin 5 mg tablet 5 mg PO HS PRN Insomnia #30 tabs 05/07/24 09/22/24 Rx polyethylene glycol 3350 17 gram 17 g PO QAM PRN Constipation #30 ea 05/07/24 09/22/24 Rx oral powder packet (Miralax) albuterol sulfate 90 mcg/actuation 2 puff inhalation Q4H PRN 06/25/24 10/05/24 Rx aerosol inhaler (Ventolin HFA) shortness of breath or wheezing #8.5 grams blood-glucose meter #1 ea 07/02/24 09/22/24 Rx blood sugar diagnostic (Accu-Chek #100 ea 07/06/24 09/22/24 Rx Guide test strips) blood sugar diagnostic (Accu-Chek #100 ea 07/22/24 09/22/24 Rx Guide test strips) metoprolol succinate 25 mg 25 mg PO DAILY #90 tabs 07/31/24 10/05/24 Rx tablet,extended release 24 hr metformin 500 mg tablet See Rx Instructions .Route 08/03/24 10/05/24 Rx .COMPLEX #180 tabs sertraline 50 mg tablet 50 mg PO DAILY #30 tabs 08/31/24 10/05/24 Rx acetaminophen 500 mg capsule 500 mg PO Q6H PRN pain 09/17/24 10/05/24 History apixaban 5 mg tablet (Eliquis) 5 mg PO BID 09/17/24 10/05/24 History cetirizine 10 mg tablet (All Day 10 mg PO DAILY 09/17/24 10/05/24 History Allergy (cetirizine)) fluticasone propionate 50 2 spray intranasal Q12H 09/17/24 09/22/24 History mcg/actuation nasal spray,suspension Allergies Allergy/AdvReac Type Severity Reaction Status Date / Time Sulfa (Sulfonamide Allergy Unknown Unknown Verified 10/05/24 12:00 Antibiotics) terazosin Allergy Unknown Verified 10/05/24 12:00 Vital Signs Vital Signs - 24 hr 10/05/24 12:03 Temperature 97.1 F L Pulse Rate 67 Respiratory Rate 17 Blood Pressure 137/57 L Pulse Oximetry 100 Oxygen Delivery Room Air Exam Const: General: cooperative and healthy appearing Resp: Effort & Inspection: normal respiratory effort and able to speak in complete sentences Auscultation: clear to auscultation bilaterally Cardio: Rate: regular rate Rhythm: regular rhythm GI: Inspection: normal to inspection GI Palp: No No hepatosplenomegaly present Auscultation: normal bowel sounds Rectal Exam: deferred Skin: General skin exam: normal color Psych: Appearance: grossly normal Mental Status: mental status grossly normal Assessment and Plan Assessment and plan (1) Positive colorectal cancer screening using Cologuard test: Code(s): R19.5 - Other fecal abnormalities Status: Acute Assessment and Plan: The patient is deemed a good candidate for the procedure. Consent signed. Will proceed.
--- NOTE | 2024-10-05 12:52 | S_PTH ---
PATIENT: Gareth Arevalo LOC: [facility] U#:[id number] AGE/SX: 73/M ROOM: RE10/05/[address]: Vel Coto MD : 1950 BED: DIS: 10/05/2024 SPEC #: [id number] RECD: 10/05/24 13:16 STATUS: PADMA REZach #: [id number] ANNEMARIE: 10/05/24 12:[address]: Vel Coto DEPT: [facility] Surgical RECD BY: Gemma Sanchez ENTERED: 10/05/24 13:17 SP TYPE: Surgical OTHR DR: Aquiles Beltran, BONITA Tissues: A - Colon Polypectomy B - Colon Polypectomy C - Colon Polypectomy D - Colon Polypectomy E - Colon Polypectomy Procedures: Hematoxylin and Eosin Stain Gross and Microscopic Level 4
[2024-10-05 12:55] VITALS: BP 121/61; PULSE 63; RESP 21; O2SAT 100
[2024-10-05 13:05] VITALS: BP 140/69; PULSE 65; RESP 16; O2SAT 100
[2024-10-05 13:15] VITALS: BP 150/73; PULSE 62; RESP 16; O2SAT 100
== END 2024-10-05 13:20 | disposition home or self-care (01) ==
PROVIDERS: PCP Nurse Practitioner; Referring Provider Nurse Practitioner; Visit Provider Internal Medicine Gastroenterology
PROC: 0DJD8ZZ Inspection of Lower Intestinal Tract, Via Natural or Artificial Opening Endoscopic (ICD-10-PCS; CPT 45378; principal; 2024-10-05 13:00)
DX: D12.5 Benign neoplasm of sigmoid colon (principal); D12.4 Benign neoplasm of descending colon; D12.3 Benign neoplasm of transverse colon; D12.2 Benign neoplasm of ascending colon; D12.8 Benign neoplasm of rectum; E78.5 Hyperlipidemia, unspecified; I10 Essential (primary) hypertension; E11.9 Type 2 diabetes mellitus without complications; K21.9 Gastro-esophageal reflux disease without esophagitis; F41.9 Anxiety disorder, unspecified; I48.91 Unspecified atrial fibrillation; F12.90 Cannabis use, unspecified, uncomplicated; Z79.51 Long term (current) use of inhaled steroids; Z79.84 Long term (current) use of oral hypoglycemic drugs; Z79.01 Long term (current) use of anticoagulants; Z98.890 Other specified postprocedural states; Z90.49 Acquired absence of other specified parts of digestive tract; Z87.891 Personal history of nicotine dependence; Z85.528 Personal history of other malignant neoplasm of kidney; Z80.9 Family history of malignant neoplasm, unspecified; Z82.49 Family history of ischemic heart disease and other diseases of the circulatory system
CPT/HCPCS: 45385; 82948; 88305; J2003; J2704; J7120

== ENCOUNTER 2024-10-09 13:57 | Outpatient (CLI) | payer MEDICARE, SELFPAY ==
--- OUTSIDE RECORDS SUMMARY | 2024-10-09 13:59 | XMS_ITS | Clinical Summary ---
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 [address] [place] [address] PCP - General Internal Medicine 05/28/18
--- OUTSIDE RECORDS SUMMARY | 2024-10-09 13:59 | XMS_ITS | Clinical Summary ---
Author Organization [facility] Address [address] [address] Phone Care Team Providers Care Sound Effects Manager Name Role Phone Unavailable Primary Care Provider [...] age to complete this topic Insurance MEDICARE [facility]
== END 2024-10-09 13:58 | disposition home or self-care (01) ==
LOC: ANHAUDIO 13:57
PROVIDERS: PCP Nurse Practitioner; Visit Provider Nurse Practitioner
DX: H90.3 Sensorineural hearing loss, bilateral (principal)
CPT/HCPCS: 92557; 92567